=== PATIENT | female | born 1965 | race Caucasian/White ===

== ENCOUNTER 2016-12-07 22:16 | Emergency (ER) | payer OTHER ==
[2016-12-07 22:28] VITALS: BMI 31.7
[2016-12-07] MEDS ORDERED: ASPIRIN 81 MG CHEWABLE TABLETS PO ONE (23:32)
[2016-12-07] MEDS ORDERED: ASPIRIN 81 MG CHEWABLE TABLETS ONE (23:51)
--- NOTE | 2016-12-08 00:22 | PDOC ---
History of Present Illness <Elayne Wong - Last Filed: 12/08/16 00:25> <Kylie Alexander - Last Filed: 12/08/16 22:59> - General Chief Complaint: Chest Pain Stated Complaint: HIGH SUGAR/CHEST PAIN Time Seen by Provider: 12/07/16 23:17 - History of Present Illness Initial Comments: 12/08/16 00:25 The patient is a 50 year old female, with a significant past medical history of diabetes (januvia 550mg), hypertension, who presents to the emergency department with intermittent chest pain and palpitations for 4 days. The patient describes the pain as a stabbing pain, 6/10 in severity, with associated left arm weakness. She reports having an echocardiogram and stress test about 2 years ago with some positive finding, but denies ever following up. She denies shortness of breath, headache and dizziness. She denies fever, chills , nausea, vomit, diarrhea and constipation. She denies dysuria, frequency, urgency and hematuria. Allergies: tylenol codeine (rashes, swelling) Past surgical history: colectomy (2004), lap band (2005) Social history: denies toxic habits PCP - Dr. Petty (Elayne Wong) Past History <Elayne Wong - Last Filed: 12/08/16 00:25> - Past Medical History Diabetes: Yes HTN: Yes Other medical history: migraine, diverticulits - Psycho/Social/Smoking Cessation Hx Suicidal Ideation: No Smoking History: Never smoked <Kylie Alexander - Last Filed: 12/08/16 22:59> - Past Medical History Allergies/Adverse Reactions: Allergies Allergy/AdvReac Type Severity Reaction Status Date / Time acetaminophen Allergy Verified 12/07/16 22:24 [From Tylenol-Codeine] codeine phosphate Allergy Verified 12/07/16 22:24 [From Tylenol-Codeine] Home Medications: Ambulatory Orders Amlodipine Besylate 5 mg PO DAILY 12/08/16 Chlorthalidone 25 mg PO DAILY 12/08/16 Losartan Potassium 25 mg PO DAILY 12/08/16 Review of Systems - Review of Systems Able to Perform ROS?: Yes <Elayne Wong - Last Filed: 12/08/16 00:25> <Kylie Alexander - Last Filed: 12/08/16 22:59> - Review of Systems Comments:: 12/08/16 00:25 CONSTITUTIONAL: (+) fever, Absent: chills, diaphoresis, generalized weakness, malaise, loss of appetite HEENT: Absent: rhinorrhea, nasal congestion, throat pain, throat swelling, difficulty swallowing, mouth swelling, ear pain, eye pain, visual Changes CARDIOVASCULAR: (+) chest pain, palpitations, Absent: syncope, irregular heart rate, lightheadedness, peripheral edema RESPIRATORY: Absent: cough, shortness of breath, dyspnea with exertion, orthopnea, wheezing, stridor, hemoptysis GASTROINTESTINAL: Absent: abdominal pain, abdominal distension, nausea, vomiting, diarrhea, constipation, melena, hematochezia GENITOURINARY: Absent: dysuria, frequency, urgency, hesitancy, hematuria, flank pain, genital pain MUSCULOSKELETAL: Absent: myalgia, arthralgia, joint swelling SKIN: Absent: rash, itching, pallor HEMATOLOGIC/IMMUNOLOGIC: Absent: easy bleeding, easy bruising, lymphadenopathy, frequent infections ENDOCRINE: Absent: unexplained weight gain, unexplained weight loss, heat intolerance, cold intolerance NEUROLOGIC: Absent: headache, focal weakness or paresthesias, dizziness, unsteady gait, seizure, mental status changes, bladder or bowel incontinence PSYCHIATRIC: Absent: anxiety, depression, suicidal or homicidal ideation, hallucinations. ( Elayne Wong) *Physical Exam <Elayne Wong - Last Filed: 12/08/16 00:25> <Kylie Alexander - Last Filed: 12/08/16 22:59> - Vital Signs Last Vital Signs Temp Pulse Resp BP Pulse Ox 98.8 F 120 H 20 104/75 100 12/07/16 22:25 12/07/16 22:25 12/07/16 22:25 12/07/16 22:25 12/07/16 22:25 - Physical Exam Comments: 12/08/16 00:27 GENERAL: Well developed, well nourished. Awake and alert. No acute distress. HEENT: Normocephalic, atraumatic. PERRLA, EOMI. No conjunctival pallor. Sclera are non- icteric. Moist mucous membranes. Oropharynx is clear. NECK: Supple. Full ROM. No JVD. Carotid pulses 2+ and symmetric, without bruits. No thyromegaly. No lymphadenopathy. CARDIOVASCULAR: (+) tachycardic rate and normal rhythm. No murmurs, rubs, or gallops. Distal pulses are 2+ and symmetric. PULMONARY: No evidence of respiratory distress. Lungs clear to auscultation bilaterally. No wheezing, rales or rhonchi. ABDOMINAL: Soft. Non-tender. Non-distended. No rebound or guarding. No organomegaly. Normoactive bowel sounds. MUSCULOSKELETAL Normal range of motion at all joints. No bony deformities or tenderness. No CVA tenderness. EXTREMITIES: No cyanosis. No clubbing. No edema. No calf tenderness. SKIN: Warm and dry. Normal capillary refill. No rashes. No jaundice. NEUROLOGICAL: Alert, awake, appropriate. Cranial nerves 2-12 intact. Normoreflexic in the upper and lower extremities. Normal speech. Toes are down-going bilaterally. Gait is normal without ataxia. PSYCHIATRIC: Cooperative. Good eye contact. Appropriate mood and affect. (Elayne Wong) ED Treatment Course - LABORATORY CBC & Chemistry Diagram: 12/08/16 00:28 12/08/16 00:28 <Kylie Alexander - Last Filed: 12/08/16 22:59> - ADDITIONAL ORDERS Additional order review: 12/08/16 12/08/16 05:09 00:28 RBC 5.02 MCV 81.5 MCHC 34.4 RDW 13.7 MPV 9.0 Neutrophils % 65.6 Lymphocytes % 25.0 Monocytes % 7.1 Eosinophils % 1.6 Basophils % 0.7 POC Glucometer [id number] - RADIOLOGY Radiology Studies Ordered: Category Date Time Status CHEST PA & LAT [RAD] Stat Radiology 12/08/16 02:52 Completed CHEST X-RAY PORTABLE* [RAD] Stat Radiology 12/08/16 01:31 Completed - Medications Given in the ED: ED Medications Discontinued Medications Generic Name Dose Route Start Last Admin Trade Name Freq PRN Reason Stop Dose Admin Aspirin 162 mg 12/07/16 23:32 12/07/16 23:47 Asa - PO 12/07/16 23:33 162 mg ONCE ONE Administration Sodium Chloride 1,000 mls @ 1,000 mls/hr 12/08/16 01:38 12/08/16 02:05 Normal Saline - IV 12/08/16 02:37 1,000 mls/hr ASDIR STA Administration Medical Decision Making <Elayne oWng - Last Filed: 12/08/16 00:25> <Kylie Alexander - Last Filed: 12/08/16 22:59> - Medical Decision Making 12/08/16 02:06 50 yo female has had 4 days of chest pain and then dev left arm pain. shenoted that her glucose was elevated at home. She denies any nausea,vomiting -pt is NIDDM and takes januvia. ekg does not show any evidence of ischemia -first cardiac enzyme is negative -[id number] (Kylie Alexander) *DC/Admit/Observation/Transfer <Elayne Wong - Last Filed: 12/08/16 00:25> <Kylie Alexander - Last Filed: 12/08/16 22:59> Diagnosis at time of Disposition: Chest pain - Referrals Referrals: Prem Petty [Primary Care Provider] - Moody Oates MD [Staff Physician] - - Patient Instructions Printed Discharge Instructions: DI for Chest Pain - Post Discharge Activity Work/School Note: Back to Work - Attestations Scribe Attestion: 12/08/16 00:27 Documentation prepared by Elayne Wong, acting as medical billing specialist for Kylie Alexander MD (Elayne Wong)
[2016-12-08 00:58] LABS: BASOPHIL 0.7 % (0-2.0); EOSINOPHIL 1.6 % (0-4.5); MCHC 34.4 g/dl (32.0-36.0); MEAN CELL VOLUME 81.5 fl (80-96); NEUTROPHILS 65.6 % (42.8-82.8); PLATELET COUNT 343 K/MM3 (134-434); RDW 13.7 % (11.6-15.6); WHITE BLOOD COUNT 8.2 K/mm3 (4.0-10.0)
[2016-12-08 01:16] LABS: INR 1.15 (0.82-1.09); PROTHROMBIN TIME (PATIENT) 12.7 SEC (9.98-11.88)
[2016-12-08 01:27] LABS: ALBUMIN 3.5 g/dl (3.4-5.0); ANION GAP 11 (8-16); BILIRUBIN,TOTAL 0.3 mg/dL (0.2-1.0); CALCIUM 8.9 mg/dL (8.5-10.1); CO2 31 mmol/L (21-32); CREATININE 0.9 mg/dL (0.55-1.02); MAGNESIUM 1.7 mg/dL (1.8-2.4); SGOT/AST 13 U/L (15-37); SGPT/ALT 21 U/L (12-78); TOT PROT 7.5 g/dl (6.4-8.2)
[2016-12-08 01:30] LABS: ALK PHOS 206 U/L (45-117); TROPONIN I < 0.02 ng/ml (0.00-0.05)
[2016-12-08 01:34] LABS: GLUCOSE,RANDOM 385 mg/dL (74-106)
[2016-12-08] MEDS ORDERED: SODIUM CHLORIDE 1,000 ML IV STA (01:38)
[2016-12-08 04:29] LABS: TROPONIN I < 0.02 ng/ml (0.00-0.05)
--- NOTE | 2016-12-08 04:39 | PDOC ---
*Physical Exam - Vital Signs Last Vital Signs Temp Pulse Resp BP Pulse Ox 98.8 F 120 H 20 104/75 100 12/07/16 22:25 12/07/16 22:25 12/07/16 22:25 12/07/16 22:25 12/07/16 22:25 ED Treatment Course - LABORATORY CBC & Chemistry Diagram: 12/08/16 00:28 12/08/16 00:28 - ADDITIONAL ORDERS Additional order review: Laboratory Results 12/08/16 12/08/16 12/08/16 04:00 00:28 00:28 INR Sodium 133 L Potassium 3.6 Chloride 91 L Carbon Dioxide 31 Anion Gap 11 BUN 12 Creatinine 0.9 Creat Clearance w eGFR > 60 Random Glucose 385 H* Calcium 8.9 Magnesium 1.7 L Total Bilirubin 0.3 AST 13 L ALT 21 Alkaline Phosphatase 206 H Creatine Kinase 65 67 Troponin I < 0.02 < 0.02 Total Protein 7.5 Albumin 3.5 Serum , Qual Negative 12/08/16 00:28 INR 1.15 H Sodium Potassium Chloride Carbon Dioxide Anion Gap BUN Creatinine Creat Clearance w eGFR Random Glucose Calcium Magnesium Total Bilirubin AST ALT Alkaline Phosphatase Creatine Kinase Troponin I Total Protein Albumin Serum , Qual 12/08/16 00:28 RBC 5.02 MCV 81.5 MCHC 34.4 RDW 13.7 MPV 9.0 Neutrophils % 65.6 Lymphocytes % 25.0 Monocytes % 7.1 Eosinophils % 1.6 Basophils % 0.7 - Medications Given in the ED: ED Medications Discontinued Medications Generic Name Dose Route Start Last Admin Trade Name Freq PRN Reason Stop Dose Admin Aspirin 162 mg 12/07/16 23:32 12/07/16 23:47 Asa - PO 12/07/16 23:33 162 mg ONCE ONE Administration Sodium Chloride 1,000 mls @ 1,000 mls/hr 12/08/16 01:38 12/08/16 02:05 Normal Saline - IV 12/08/16 02:37 1,000 mls/hr ASDIR STA Administration *DC/Admit/Observation/Transfer Diagnosis at time of Disposition: Chest pain Qualifiers: Chest pain type: unspecified Qualified Code(s): R07.9 - Chest pain, unspecified - Discharge Dispostion Admit: No - Referrals Referrals: Prem Petty [Primary Care Provider] - Moody Oates MD [Staff Physician] - - Patient Instructions Printed Discharge Instructions: DI for Chest Pain - Post Discharge Activity Work/School Note: Back to Work
--- NOTE | 2016-12-08 11:55 | EKG ---
Test Reason : Blood Pressure : / mmHG Vent. Rate : 112 BPM Atrial Rate : 112 BPM P-R Int : 162 ms QRS Dur : 092 ms QT Int : 350 ms P-R-T Axes : 031 -37 008 degrees QTc Int : 477 ms SINUS TACHYCARDIA POSSIBLE LEFT ATRIAL ENLARGEMENT LEFT AXIS DEVIATION ABNORMAL ECG NO PREVIOUS ECGS AVAILABLE Confirmed by RYAN JOHNS, CONNIE ([id number]) on 12/08/2016 11:54:59 AM Referred By: Confirmed By:CONNIE DAVIS MD
[2016-12-11 04:27] VITALS: PULSE 82
[2016-12-11 04:43] VITALS: BP 118/63; TEMP 97.9
== END 2016-12-08 04:40 | disposition home or self-care (01) ==
LOC: JER 22:16
PROC: 3E0337Z Introduction of Electrolytic and Water Balance Substance into Peripheral Vein, Percutaneous Approach (ICD-10-PCS; principal; 2016-12-07)
DX: R07.89 Other chest pain (principal); Z79.84 Long term (current) use of oral hypoglycemic drugs
CPT/HCPCS: 36415; 71010-TC; 71020-TC; 80053; 82550; 83735; 84484; 84703; 85025; 85610; 93005; 93010; 99282-25; 99284-25

== ENCOUNTER 2018-12-08 15:30 | Inpatient (IN) | payer OTHER ==
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
[2018-12-08 16:19] VITALS: BMI 30.9
[2018-12-08] MEDS ORDERED: SODIUM CHLORIDE 2,449 ML IV ONE (16:42)
[2018-12-08] MEDS ORDERED: ACETAMINOPHEN 1000 MG/100 ML VIAL (NON FORMULARY) IVPB ONE (16:44)
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
[2018-12-08] MEDS ORDERED: ACETAMINOPHEN INJECTION 100 ML IVPB ONE (17:19)
[2018-12-08 17:31] LABS: INR 1.27 (0.83-1.09)
[2018-12-08 17:34] LABS: ACTIVATED PTT 27.8 SECONDS (25.2-36.5)
[2018-12-08 17:46] LABS: ALBUMIN 3.3 g/dl (3.4-5.0); ALK PHOS 113 U/L (45-117); ANION GAP 7 MMOL/L (8-16); BILIRUBIN,TOTAL 0.3 mg/dL (0.2-1); BLOOD UREA NITROGEN 13 mg/dL (7-18); CALCIUM 8.2 mg/dL (8.5-10.1); CHLORIDE 100 mmol/L (98-107); CO2 25 mmol/L (21-32); CREATININE 0.8 mg/dL (0.55-1.3); GLUCOSE,RANDOM 150 mg/dL (74-106); POTASSIUM 3.6 mmol/L (3.5-5.1); SGOT/AST 29 U/L (15-37); SGPT/ALT 28 U/L (13-61); SODIUM 132 mmol/L (136-145); TOT PROT 7.7 g/dl (6.4-8.2)
[2018-12-08 17:52] LABS: BASO % 0.2 % (0-2.0); EOS % 0.4 % (0-4.5); HEMATOCRIT 41.9 % (32.4-45.2); HEMOGLOBIN 14.7 GM/dL (10.7-15.3); LYMPH % 10.2 % (8-40); MCH 29.1 pg (25.7-33.7); MEAN CELL VOLUME 83.1 fl (80-96); MEAN PLT VOLUME 8.7 fl (7.5-11.1); MONO % 6.9 % (3.8-10.2); NEUT % 82.3 % (42.8-82.8); PLATELET COUNT 302 K/MM3 (134-434); RBC 5.04 M/mm3 (3.60-5.2); RDW 13.7 % (11.6-15.6)
[2018-12-08 18:21] LABS: EPI CELLS 12.4 /HPF (0-5); HYALINE CASTS 84 /hpf (0-8); PH,URINE 5.5 (5.0-8.0); URINE APPEARANCE CLOUDY; URINE BACTERIA 169.362 /hpf (NEGATIVE); URINE BILIRUBIN 1+ (<2.0 mg/dL); URINE COLOR DK YELLOW; URINE GLUCOSE (UA) NEGATIVE (NEGATIVE); URINE KETONE TRACE (NEGATIVE); URINE LEUK ESTERASE TRACE (NEGATIVE); URINE NITRITE NEGATIVE (NEGATIVE); URINE PROTEIN 2+ (NEGATIVE); URINE RBC 1 /hpf (0-4); URINE WBC 7 /hpf (0-5)
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
[2018-12-08 21:30] LABS: VENOUS PC02 42.6 mmHg (41-51); VENOUS PH 7.41 (7.31-7.41); VENOUS PO2 39.6 mmHg (30-40)
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
[2018-12-08] MEDS ORDERED: ONDANSETRON 4 MG/2 ML VIAL IVPUSH PRN (23:40)
[2018-12-08] MEDS ORDERED: SODIUM CHLORIDE 1,000 ML IV SCH (23:45)
[2018-12-08] MEDS ORDERED: ALBUTEROL SO4 2.5/IPRATROPIUM 0.5 INH SOL 3 ML VIAL.NEB. NEB PRN (23:55)
[2018-12-08] MEDS ORDERED: ALBUTEROL SO4 0.083% IH SOL 2.5 MG/3 ML VIAL.NEB. NEB PRN (23:56)
[2018-12-09] MEDS: metroNIDAZOLE 250 MG TABLET PO SCH ×2 (02:21→06:57)
[2018-12-09] MEDS ORDERED: MECLIZINE HCL 25 MG TABLET (FP) PO PRN (06:00)
[2018-12-09] MEDS ORDERED: methylPREDNISolone NA SUCC 1000 MG/8 ML VIAL IVPB ONE (06:04)
[2018-12-09] MEDS: guaiFENesin 600 MG TABLET.ER (FP) PO SCH ×4 (06:14→21:58)
[2018-12-09] MEDS ORDERED: methylPREDNISolone NA SUCC 40 MG/1 ML VIAL IVPB ONE (06:19)
[2018-12-09] MEDS: INSULIN SLIDING SCALE (NOVOLOG) 1 VIAL SQ SCH ×6 (06:34→22:06)
[2018-12-09] MEDS ORDERED: metroNIDAZOLE 250 MG TABLET ONE (06:36)
[2018-12-09] MEDS ORDERED: methylPREDNISolone NA SUCC 125 MG/2 ML VIAL ONE (06:37)
[2018-12-09] MEDS ORDERED: HEPARIN NA (PORCINE) 5,000 UNITS/ML 1ML VIAL ONE (06:37)
[2018-12-09 06:42] LABS: BASO % 0.4 % (0-2.0); EOS % 1.9 % (0-4.5); HEMATOCRIT 37.8 % (32.4-45.2); HEMOGLOBIN 13.2 GM/dL (10.7-15.3); LYMPH % 25.2 % (8-40); MCH 28.8 pg (25.7-33.7); MCHC 34.9 g/dl (32.0-36.0); MEAN CELL VOLUME 82.5 fl (80-96); MEAN PLT VOLUME 8.6 fl (7.5-11.1); MONO % 13.6 % (3.8-10.2); NEUT % 58.9 % (42.8-82.8); PLATELET COUNT 249 K/MM3 (134-434); RBC 4.58 M/mm3 (3.60-5.2); RDW 13.8 % (11.6-15.6); WHITE BLOOD COUNT 3.7 K/mm3 (4.0-10.0)
[2018-12-09 06:57] LABS: INR 1.19 (0.83-1.09); PROTHROMBIN TIME (PATIENT) 14.1 SEC (9.7-13.0)
[2018-12-09] MEDS: HEPARIN NA (PORCINE) 5,000 UNITS/ML 1ML VIAL SQ SCH ×3 (06:57→21:58)
[2018-12-09 07:00] LABS: ACTIVATED PTT 28.9 SECONDS (25.2-36.5)
[2018-12-09 07:24] LABS: ALBUMIN 2.9 g/dl (3.4-5.0); ALK PHOS 99 U/L (45-117); AMYLASE 29 U/L (25-115); ANION GAP 5 MMOL/L (8-16); BILIRUBIN,TOTAL 0.3 mg/dL (0.2-1); BLOOD UREA NITROGEN 9 mg/dL (7-18); CALCIUM 7.7 mg/dL (8.5-10.1); CHLORIDE 102 mmol/L (98-107); CO2 27 mmol/L (21-32); CREATININE 0.6 mg/dL (0.55-1.3); GLUCOSE,RANDOM 137 mg/dL (74-106); LIPASE 137 U/L (73-393); MAGNESIUM 1.9 mg/dL (1.8-2.4); PHOSPHOROUS 2.9 mg/dL (2.5-4.9); POTASSIUM 3.8 mmol/L (3.5-5.1); SGOT/AST 32 U/L (15-37); SGPT/ALT 32 U/L (13-61); SODIUM 134 mmol/L (136-145); TOT PROT 6.7 g/dl (6.4-8.2)
[2018-12-09] MEDS ORDERED: PT OWN MED DRAWER 7, Y5N ONE ×2 (08:06→21:49)
[2018-12-09] MEDS: amLODIPine BESYLATE 5 MG TABLET (FP) PO SCH (09:37)
[2018-12-09] MEDS: FLUTICASONE PROP 0.05% 16 GM NASAL SPRAY NS SCH ×2 (09:37→23:15)
[2018-12-09] MEDS: FAMOTIDINE 20 MG/50 ML IVPB 20 MG/50 ML MG IVPB SCH ×2 (09:39→22:07)
[2018-12-09] MEDS: CEFTRIAXONE 1 GM in DEXTROSE 5%-WATER - 50 ML IVPB SCH (09:39)
[2018-12-09] MEDS ORDERED: FAMOTIDINE 20 MG/50 ML IVPB 20 MG/50 ML MG IVPB ONE (09:40)
[2018-12-09] MEDS ORDERED: CEFTRIAXONE 1 GM/50 ML BAG ONE (09:40)
[2018-12-09] MEDS ORDERED: LOSARTAN POTASSIUM 25 MG TABLET PO SCH (10:00)
[2018-12-09] MEDS ORDERED: BENZOCAINE/MENTH/CETYLPYRD CL 1 EACH LOZENGE MM PRN (10:25)
[2018-12-09] MEDS: SODIUM CHLORIDE 1,000 ML IV SCH (10:31)
[2018-12-09 10:37] LABS: EPI CELLS 15.6 /HPF (0-5); HYALINE CASTS 64 /hpf (0-8); URINE APPEARANCE CLOUDY; URINE BACTERIA 944.1 /hpf (NEGATIVE); URINE BILIRUBIN NEGATIVE (<2.0 mg/dL); URINE COLOR DK YELLOW; URINE GLUCOSE (UA) NEGATIVE (NEGATIVE); URINE KETONE 1+ (NEGATIVE); URINE LEUK ESTERASE 2+ (NEGATIVE); URINE NITRITE NEGATIVE (NEGATIVE); URINE PROTEIN 1+ (NEGATIVE); URINE RBC 2 /hpf (0-4); URINE WBC 78 /hpf (0-5)
[2018-12-09] MEDS: IBUPROFEN 400 MG TABLET (FP) PO PRN (11:03)
[2018-12-09] MEDS ORDERED: IBUPROFEN 400 MG TABLET (FP) PO ONE (11:03)
[2018-12-09] MEDS ORDERED: ALBUTEROL SO4 2.5/IPRATROPIUM 0.5 INH SOL 3 ML VIAL.NEB. NEB ONE (11:03)
[2018-12-09] MEDS ORDERED: ONDANSETRON 4 MG/2 ML VIAL ONE (11:04)
--- NOTE | 2018-12-09 11:05 | EKG ---
Test Reason : Blood Pressure : / mmHG Vent. Rate : 121 BPM Atrial Rate : 121 BPM P-R Int : 152 ms QRS Dur : 082 ms QT Int : 314 ms P-R-T Axes : 033 -42 013 degrees QTc Int : 445 ms SINUS TACHYCARDIA POSSIBLE LEFT ATRIAL ENLARGEMENT LEFT AXIS DEVIATION ABNORMAL ECG WHEN COMPARED WITH ECG OF 07-DEC-2016 22:35, NO SIGNIFICANT CHANGE WAS FOUND Confirmed by WOJCIECH FABIAN MD ([id number]) on 12/09/2018 11:04:58 AM Referred By: Confirmed By:WOJCIECH FABIAN MD
[2018-12-09] MEDS ORDERED: SUMAtriptan SUCCINATE 50 MG TABLET PO PRN ×2 (11:15→22:00)
[2018-12-09] MEDS ORDERED: SUMATRIPTAN SUCCINATE 6 MG/0.5 ML VIAL SQ ONE ×2 (11:15→12:20)
[2018-12-09] MEDS ORDERED: SUMATRIPTAN SUCCINATE 6 MG/0.5 ML VIAL ONE (11:20)
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
[2018-12-09] MEDS ORDERED: INSULIN (NOVOLOG) ASPART 100 UNITS/ML 10ML VIAL ONE (12:50)
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
--- NOTE | 2018-12-09 14:29 | ECHO ---
Name: FIFI CARMONA Exam:Adult Echocardiogram Study Date: 12/09/2018 09:17 AM Age: 52 yrs Reason For Study: SYNCOPE Height: 64 in Weight: 180 lb BSA: 1.9 m2 MMode/2D Measurements & Calculations IVSd: 0.85 cm Ao root diam: 2.6 cm LVIDd: 4.4 cm LVIDs: 2.9 cm LVPWd: 0.77 cm EDV(Teich): 87.6 ml LVOT diam: 2.0 cm ESV(Teich): 32.4 ml Doppler Measurements & Calculations MV E max tye: 47.3 cm/sec Ao V2 max: 271.5 cm/sec MV A max tye: 102.8 cm/sec Ao max P.7 mmHg MV E/A: 0.46 Ao V2 mean: 171.0 cm/sec MV dec time: 0.09 sec Ao mean P.9 mmHg Ao V2 VTI: 46.1 cm BRANDAN(I,D): 2.8 cm2 BRANDAN(V,D): 2.6 cm2 LV V1 max P.0 mmHg SV(LVOT): 127.8 ml LV V1 mean P.7 mmHg LV V1 max: 223.9 cm/sec LV V1 mean: 118.1 cm/sec LV V1 VTI: 40.3 cm Med Peak E' Tye: 3.1 cm/sec Med E/e': 15.2 Lat Peak E' Tye: 8.4 cm/sec Lat E/e': 5.6 Procedure The study was technically difficult with many images being suboptimal in quality. Left Ventricle There is moderate asymmetric left ventricular hypertrophy. There is systolic anterior motion of the m itral valve. There is a late peaking systolic gradient (maximum 50-60mmHg) which localizes to the left vent ricular outflow tract on PW doppler imaging. Findings are suggestive of hypertrophic obstructive cardiomyopat hy. Recommend correlation with cardiac MRI as outpatient to confirm. The transmitral spectral Doppler florecita w pattern is suggestive of impaired LV relaxation. Mitral Valve There is mild mitral regurgitation. Tricuspid Valve The tricuspid valve is not well visualized, but is grossly normal. There is mild tricuspid regurgitat ion. Great Vessels The aortic root is normal size. Pericardium/Pleura There is no pericardial effusion. Interpretation Summary The study was technically difficult with many images being suboptimal in quality. There is moderate asymmetric left ventricular hypertrophy. There is systolic anterior motion of the mitral valve. There is mild mitral regurgitation. There is a late peaking systolic gradient (maximum 50-60mmHg) which localizes to the left ventricular outflow tract on PW doppler imaging. Findings are suggestive of hypertrophic obstructive cardiomyopathy. Kristofer mmend correlation with cardiac MRI as outpatient to confirm. There is mild tricuspid regurgitation. There is no pericardial effusion. MD Cordero *Sil 12/09/2018 02:28 PM
[2018-12-09] MEDS ORDERED: PRAMIPEXOLE DIHYDROCHLORIDE 0.125 MG TABLET PO SCH (22:00)
[2018-12-09] MEDS: TOPIRAMATE 25 MG TABLET (FP) PO SCH (23:18)
[2018-12-10] MEDS: HEPARIN NA (PORCINE) 5,000 UNITS/ML 1ML VIAL SQ SCH ×2 (05:54→15:38)
[2018-12-10] MEDS: INSULIN SLIDING SCALE (NOVOLOG) 1 VIAL SQ SCH ×2 (06:13→12:11)
[2018-12-10 06:50] LABS: HEMATOCRIT 37.9 % (32.4-45.2); HEMOGLOBIN 13.3 GM/dL (10.7-15.3); MCH 29.1 pg (25.7-33.7); MCHC 35.1 g/dl (32.0-36.0); MEAN CELL VOLUME 82.7 fl (80-96); MEAN PLT VOLUME 8.3 fl (7.5-11.1); PLATELET COUNT 265 K/MM3 (134-434); RBC 4.59 M/mm3 (3.60-5.2); RDW 14.1 % (11.6-15.6); WHITE BLOOD COUNT 3.5 K/mm3 (4.0-10.0)
[2018-12-10 07:19] LABS: ANION GAP 6 MMOL/L (8-16); BLOOD UREA NITROGEN 9 mg/dL (7-18); CALCIUM 7.8 mg/dL (8.5-10.1); CHLORIDE 104 mmol/L (98-107); CO2 28 mmol/L (21-32); CREATININE 0.6 mg/dL (0.55-1.3); GLUCOSE,RANDOM 91 mg/dL (74-106); MAGNESIUM 1.9 mg/dL (1.8-2.4); PHOSPHOROUS 2.9 mg/dL (2.5-4.9); POTASSIUM 3.6 mmol/L (3.5-5.1); SODIUM 138 mmol/L (136-145)
[2018-12-10] MEDS ORDERED: cefTRIAXone SODIUM 1 GM VIAL ONE (09:05)
[2018-12-10] MEDS ORDERED: DEXTROSE 5%-WATER - 50 ML IVPB ONE (09:05)
[2018-12-10] MEDS ORDERED: PT OWN MED DRAWER 7, Y5N ONE (09:05)
--- NOTE | 2018-12-10 09:16 | PN ---
Progress Note (short form) - Note Progress Note: Chief Complaint: Events noted, notes reviewed, recurrent syncopal episode, hypertrophic obstructive cardiomyopathy on echocardiography History of Present Illness: Seen and examined on telemetry. Full consult dictated Medications: Current Medications Albuterol Sulfate (Ventolin 0.083% Nebulizer Soln -) 1 amp NEB Q6H PRN PRN Reason: SHORT OF BREATH/WHEEZING Albuterol/Ipratropium (Duoneb -) 1 amp NEB Q4H PRN PRN Reason: SHORTNESS OF BREATH Last Admin: 12/09/18 11:04 Dose: 1 amp Amlodipine Besylate (Norvasc -) 5 mg PO DAILY [facility] Last Admin: 12/10/18 09:54 Dose: 5 mg Benzocaine/Menthol (Cepacol Lozenge -) 1 each MM PRN PRN PRN Reason: SORE THROAT Fluticasone Propionate (Flonase -) 1 spray NS BID [facility] Last Admin: 12/10/18 09:54 Dose: Not Given Guaifenesin (Mucinex -) 600 mg PO BID [facility] Last Admin: 12/10/18 09:54 Dose: 600 mg Heparin Sodium (Porcine) (Heparin -) 5,000 unit SQ TID [facility] Last Admin: 12/10/18 05:54 Dose: 5,000 unit Ceftriaxone Sodium 1 gm/ (Dextrose) 50 mls @ 100 mls/hr IVPB DAILY [facility]; Protocol Last Admin: 12/10/18 09:54 Dose: 100 mls/hr Famotidine/Sodium Chloride (Pepcid 20 Mg Premixed Ivpb -) 20 mg in 50 mls @ 100 mls/hr IVPB BID [facility] Last Admin: 12/10/18 09:54 Dose: 100 mls/hr Sodium Chloride (Normal Saline -) 1,000 mls @ 100 mls/hr IV ASDIR [facility] Last Admin: 12/09/18 10:31 Dose: 100 mls/hr Ibuprofen (Motrin -) 400 mg PO Q6H PRN PRN Reason: FEVER Insulin Aspart (Novolog Vial Sliding Scale -) 1 vial SQ ACHS [facility]; Protocol Last Admin: 12/10/18 06:13 Dose: Not Given Meclizine HCl (Antivert -) 25 mg PO TID PRN PRN Reason: VERTIGO Last Admin: 12/09/18 22:01 Dose: 25 mg Ondansetron HCl (Zofran Injection) 4 mg IVPUSH Q6H PRN PRN Reason: NAUSEA Last Admin: 12/09/18 11:03 Dose: 4 mg Pramipexole Dihydrochloride (Mirapex -) 0.125 mg PO HS [facility] Last Admin: 12/09/18 23:16 Dose: 0.125 mg Sumatriptan Succinate (Imitrex -) 100 mg PO Q12H PRN PRN Reason: HEADACHE Topiramate (Topamax -) 25 mg PO BID [facility] Last Admin: 12/10/18 09:54 Dose: Not Given Review of Systems Cardiovascular: As noted above Respiratory: denies: Cough or Sputum Production Gastrointestinal: denies: Nausea, Vomiting, Diarrhea, Constipation or Abdominal Pain Musculoskeletal: No Symptoms Reported Endocrine: No Symptoms Reported Vital Signs: Last Vital Signs Temp Pulse Resp BP Pulse Ox 98.2 F 78 16 124/78 97 12/10/18 05:53 12/10/18 05:53 12/10/18 05:53 12/10/18 05:53 12/10/18 01:00 Intake & Output 12/07/18 12/08/18 12/09/18 12/10/18 23:59 23:59 23:59 23:59 Intake Total 250 Balance 250 Weight 180 lb 180 lb Neck: Supple Negative JVD no bruit appreciated Respiratory: Clear to A&P Bilaterally Cardiovascular: S1 S2 Regular Rate and Rhythm Grade 2/6 WILMER Gastrointestinal: Soft Benign Normal Bowel Sounds Ext: Negative Edema Labs: Troponin, BNP 12/09/18 06:15 Troponin I < 0.02 CBC, BMP 12/10/18 06:00 12/10/18 06:00 Hepatic Panel Total Bilirubin 0.3 mg/dL (0.2-1) 12/09/18 06:15 AST 32 U/L (15-37) 12/09/18 06:15 ALT 32 U/L (13-61) 12/09/18 06:15 Alkaline Phosphatase 99 U/L (45-117) 12/09/18 06:15 Albumin 2.9 g/dl (3.4-5.0) L 12/09/18 06:15 INR, PTT INR 1.19 (0.83-1.09) H 12/09/18 06:15 Assessment/Plan ASSESSMENT: 1. Recurrent syncopal episode suggestive of HOCM exacerbated by probable dehydration, neuro-cardiogenic syncope unlikely, sustained arrhythmia unlikely 2. Hypertrophic obstructive cardiomyopathy, evident on echocardiography 3. Heart murmur related to above 4. HTN 5. DM 6. Hypercholesterolemia 7. Diarrhea 8. History of diverticulitis post partial colectomy PLAN: 1. Add B-Blockers 2. Resume ACEI or ARBS 3. D/C Norvasc 4. Avoid diuretics 5. Additional evaluation as outpatient including MPI study, cardiac MRI +/- EP study/possible ICD implant Above was discussed in detail with the patient Jose Marks M.D.
[2018-12-10] MEDS: TOPIRAMATE 25 MG TABLET (FP) PO SCH (09:54)
[2018-12-10] MEDS: FLUTICASONE PROP 0.05% 16 GM NASAL SPRAY NS SCH (09:54)
[2018-12-10] MEDS: FAMOTIDINE 20 MG/50 ML IVPB 20 MG/50 ML MG IVPB SCH (09:54)
[2018-12-10] MEDS: guaiFENesin 600 MG TABLET.ER (FP) PO SCH (09:54)
[2018-12-10] MEDS: amLODIPine BESYLATE 5 MG TABLET (FP) PO SCH (09:54)
[2018-12-10] MEDS: CEFTRIAXONE 1 GM in DEXTROSE 5%-WATER - 50 ML IVPB SCH (09:54)
[2018-12-10 11:46] VITALS: BP 118/76
[2018-12-10] MEDS: SODIUM CHLORIDE 1,000 ML IV SCH (12:11)
[2018-12-10] MEDS ORDERED: metoPROLOL SUCCINATE 25 MG TAB.SR.24H (FP) PO SCH (12:45)
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
--- NOTE | 2018-12-10 13:11 | PN ---
Teaching Attending Note Name of Resident: Evangelist Bliss ATTENDING PHYSICIAN STATEMENT I saw and evaluated the patient. I reviewed the resident's note and discussed the case with the resident. I agree with the resident's findings and plan as documented. SUBJECTIVE: No SOB, no light headedness, no TA , no COB, no palpitations. dyuria improved no diarrhea OBJECTIVE: NAD. CV: RRR, 3/6 Sm at base, LLSB, and apexno radiation to carotid but radiates to L axilla. No JVD Lungs: CTAB Abd: soft, ND, minimal TTp in suprapubic area. no rebound tenderness or guarding . No CVA tenderness Ext: no edema or erythema. ASSESSMENT AND PLAN: 52 y/o lady with h/o Migraines, DM, syncope , HTN, asthma, ? TIA/stroke who presented with syncope . she was found to have UTI 1- Syncope: due to orthostatic hypotension . hypovolemia form diarrhea in setting of HOCM could have contributed to increased outflow obstruction. tele with no arrhythmias. repeat VS showed no orthostatic drop. and patient feels much better - can stop IVF 2- New diagnosis of HOCM: case d/w Dr. Marks - md chlorthalidone and norvasc at md - add BB and increase home losartan 3- Complicated UTI: urine cx did not grow but patient sx are very suggestive of UTI . will finish 7 day course of abx with keflex ( today day 2 of ceftriaxone ) 4- N/V/D : resolved . was probably viral gastroenteritis or due to UTI 5- HTN : as above 6- DM cont amaryl at md 7- Migraines: no more TA. Dc home later today if she tolerates newly added BB
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
[2018-12-10 15:42] VITALS: PULSE 78; TEMP 98.3
--- NOTE | 2018-12-10 17:12 | EKG ---
Test Reason : Blood Pressure : / mmHG Vent. Rate : 097 BPM Atrial Rate : 097 BPM P-R Int : 152 ms QRS Dur : 088 ms QT Int : 378 ms P-R-T Axes : 042 -34 003 degrees QTc Int : 480 ms POOR DATA QUALITY, INTERPRETATION MAY BE ADVERSELY AFFECTED NORMAL SINUS RHYTHM LEFT AXIS DEVIATION PROLONGED QT ABNORMAL ECG WHEN COMPARED WITH ECG OF 08-DEC-2018 15:52, T WAVE AMPLITUDE HAS DECREASED IN LATERAL LEADS Confirmed by LOBO REYES MD ([id number]) on 12/10/2018 5:12:31 PM Referred By: Confirmed By:LOBO REYES MD
[2018-12-10] MEDS: IBUPROFEN 400 MG TABLET (FP) PO PRN (17:25)
[2018-12-10] MEDS ORDERED: TOPIRAMATE 25 MG TABLET (FP) PO SCH (22:00)
[2018-12-11 07:25] LABS: SERUM IRON SATURATION 11 % (15-55); TOTAL IRON BINDING CAPACITY 201 ug/dL (250-450); UIBC 179 ug/dL (131-425)
[2018-12-11] MEDS ORDERED: LOSARTAN POTASSIUM 50 MG TABLET (FP) PO SCH (10:00)
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
== END 2018-12-10 17:32 | disposition home or self-care (01) | DRG 312 ==
LOC: JER 15:30 → JERBED 21:58 → OBSVTOIN 12-09 14:14 → J4S 12-09 19:38
PROVIDERS: ADMIT Internal Medicine; ATTEND Internal Medicine
DX: I95.1 Orthostatic hypotension (principal); I42.1 Obstructive hypertrophic cardiomyopathy; N39.0 Urinary tract infection, site not specified; E86.0 Dehydration; E11.9 Type 2 diabetes mellitus without complications; I10 Essential (primary) hypertension; G43.909 Migraine, unspecified, not intractable, without status migrainosus; E66.9 Obesity, unspecified; G25.81 Restless legs syndrome; A08.4 Viral intestinal infection, unspecified; S09.90XA Unspecified injury of head, initial encounter; V49.3XXA Car occupant (driver) (passenger) injured in unspecified nontraffic accident, initial encounter; Y93.89 Activity, other specified; Y92.488 Other paved roadways as the place of occurrence of the external cause; Y99.8 Other external cause status
CPT/HCPCS: 36415; 70450-TC; 71046-TC-FY; 72125-TC; 74177-TC; 80048; 80053; 81003; 82150; 82550; 82553; 82607; 82746; 82803; 82962; 83036; 83540; 83550; 83605; 83631; 83690; 83735; 84100; 84439; 84443; 84481; 84484; 85025; 85027; 85610; 85651; 85730; 86140; 86850; 86900; 86901; 87040; 87086; 87804; 93005; 93010; 93306-TC; 93880-TC; 99285-25; G0378; J0131; J1644; J7030

== ENCOUNTER 2019-04-06 12:50 | Observation (INO) | payer OTHER ==
[2019-04-06] MEDS ORDERED: KETOROLAC TROMETHAMINE 30 MG/1 ML VIAL IVPUSH ONE (13:41)
[2019-04-06] MEDS ORDERED: KETOROLAC TROMETHAMINE 30 MG/1 ML VIAL ONE (13:47)
--- NOTE | 2019-04-06 14:25 | PDOC ---
History of Present Illness - General Chief Complaint: Chest Pain Stated Complaint: CHEST PAIN/LEFT SHOULDER PAIN Time Seen by Provider: 04/06/19 13:02 History Source: Patient Exam Limitations: No Limitations - History of Present Illness Initial Comments: 04/06/19 14:00 53-year-old female with recent diagnosis of cardiomyopathy presents to ED with complaints of left-sided chest pain that began her left shoulder which she just describes as a sharp pain worsened with movement for the past 2 days. Patient states did have intermittent left-sided chest pain last week which she describes as sharp without associated symptoms such as dizziness, palpitations, or difficulty breathing. Patient was seen by Dr. Oates yesterday of an initial consultation who recommended patient come to the ER for admission and cardiac workup. Patient[place]CP located in the city. Timing/Duration: intermittent Severity: moderate Associated Symptoms: reports: chest pain Past History - Travel Traveled outside of the country in the last 30 days: No Close contact w/someone who was outside of country & ill: No - Past Medical History Allergies/Adverse Reactions: Allergies Allergy/AdvReac Type Severity Reaction Status Date / Time codeine phosphate Allergy Verified 04/06/19 13:06 [From Tylenol-Codeine] Home Medications: Ambulatory Orders Acetaminophen/Caffeine/Butalb [Fioricet -] 1 tab PO Q4H 04/06/19 Albuterol Sulfate [Ventolin -] 2 mg PO TID 04/06/19 Glimepiride 0 mg PO DAILY 04/06/19 Losartan Potassium 0 mg PO DAILY 04/06/19 Metoprolol Tartrate 25 mg PO DAILY 04/06/19 Nortriptyline HCl [Pamelor -] 0 mg PO DAILY 04/06/19 Omeprazole 0 mg PO DAILY 04/06/19 Asthma: Yes COPD: No Diabetes: Yes HTN: Yes - Surgical History Abdominal Surgery: Yes (LIPOSECTION) - Suicide/Smoking/Psychosocial Hx Smoking History: Never smoked Information on smoking cessation initiated: No Hx Alcohol Use: No Drug/Substance Use Hx: No Substance Use Type: None Hx Substance Use Treatment: No Patient Lives Alone: No Lives with/in: spouse/SO Review of Systems - Review of Systems Able to Perform ROS?: Yes Constitutional: No: Symptoms Reported HEENTM: No: Symptoms Reported Respiratory: No: Symptoms reported Cardiac (ROS): Yes: Chest Pain ABD/GI: No: Symptoms Reported : No: Symptoms Reported Musculoskeletal: Yes: Joint Pain (left shoulder) Integumentary: No: Symptoms Reported Neurological: No: Symptoms reported Hematologic/Lymphatic: No: Symptoms Reported *Physical Exam - Vital Signs Last Vital Signs Temp Pulse Resp BP Pulse Ox 98.7 F 87 18 152/114 H 100 04/06/19 13:03 04/06/19 13:03 04/06/19 13:03 04/06/19 13:03 04/06/19 13:03 - Physical Exam General Appearance: Yes: Nourished, Appropriately Dressed. No: Apparent Distress HEENT: negative: Pale Conjunctivae Neck: positive: Supple. negative: Tender, Decreased range of motion Respiratory/Chest: positive: Chest Tender (left chest wall), Lungs Clear, Normal Breath Sounds. negative: Respiratory Distress, Accessory Muscle Use Cardiovascular: positive: Regular Rhythm, Regular Rate. negative: Murmur Gastrointestinal/Abdominal: positive: Soft. negative: Tenderness Extremity: positive: Normal Inspection, Tender (generalized over left shoulder anteriorly and posteriorly). negative: Normal Range of Motion (unable to perform lateral raise of the left arm greater than 60) Integumentary: positive: Normal Color, Warm, Moist. negative: Rash Neurologic: positive: Motor Strength 5/5 (ambulatory) Heart Score/ECG Review - ECG Intrepretation Rhythm: Regular Rhythm (rate 76, normal sinus rhythm,QTc 460 ms) ED Treatment Course - LABORATORY CBC & Chemistry Diagram: 04/06/19 14:13 04/06/19 14:13 - RADIOLOGY Radiology Studies Ordered: Category Date Time Status CHEST X-RAY PORTABLE* [RAD] Stat Radiology 04/06/19 13:41 Taken - Medications Given in the ED: ED Medications Discontinued Medications Generic Name Dose Route Start Last Admin Trade Name Freq PRN Reason Stop Dose Admin Ketorolac Tromethamine 30 mg 04/06/19 13:41 04/06/19 14:11 Toradol Injection - IVPUSH 04/06/19 13:42 30 mg ONCE ONE Administration Medical Decision Making - Medical Decision Making 04/06/19 14:05 Chief complaint recent diagnosis of HOCM with 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 Exam: Reproducible left-sided chest pain EKG normal elevated BP noted patient's of blood pressure medication approximate 45 minutes prior to arrival Plan: Cardiac workup IV Toradol chest x-ray and consultation to cardiology. 04/06/19 15:27 Laboratory Tests 04/06/19 04/06/19 04/06/19 14:13 14:13 14:13 WBC 6.4 Hgb 13.5 Hct 39.1 Absolute Neuts (auto) 3.9 PT with INR 12.80 INR 1.08 Sodium 137 Potassium 4.5 Chloride 99 Carbon Dioxide 35 H Anion Gap 3 L Random Glucose 201 H Calcium 9.1 Magnesium 2.0 Total Bilirubin 0.2 AST 11 L ALT 18 Alkaline Phosphatase 144 H Troponin I < 0.02 Albumin 3.4 04/06/19 15:41 Chest x-ray shows no evidence of acute pulmonary disease. *DC/Admit/Observation/Transfer Diagnosis at time of Disposition: Chest pain, Hypertrophic obstructive cardiomyopathy - Discharge Dispostion Decision to Admit order: Yes - Referrals - Patient Instructions - Post Discharge Activity
[2019-04-06 14:35] LABS: BASO % 0.7 % (0-2.0); EOS % 2.5 % (0-4.5); HEMATOCRIT 39.1 % (32.4-45.2); HEMOGLOBIN 13.5 GM/dL (10.7-15.3); LYMPH % 30.1 % (8-40); MCH 28.1 pg (25.7-33.7); MCHC 34.5 g/dl (32.0-36.0); MEAN CELL VOLUME 81.4 fl (80-96); MEAN PLT VOLUME 8.4 fl (7.5-11.1); MONO % 6.2 % (3.8-10.2); NEUT % 60.5 % (42.8-82.8); RDW 13.6 % (11.6-15.6); WHITE BLOOD COUNT 6.4 K/mm3 (4.0-10.0)
[2019-04-06 14:44] LABS: PLATELET COUNT 345 K/MM3 (134-434)
[2019-04-06 14:46] LABS: INR 1.08 (0.83-1.09); PROTHROMBIN TIME (PATIENT) 12.8 SEC (9.7-13.0)
[2019-04-06 15:06] LABS: ALBUMIN 3.4 g/dl (3.4-5.0); ALK PHOS 144 U/L (45-117); ANION GAP 3 MMOL/L (8-16); BILIRUBIN,TOTAL 0.2 mg/dL (0.2-1); BLOOD UREA NITROGEN 6.6 mg/dL (7-18); CALCIUM 9.1 mg/dL (8.5-10.1); CHLORIDE 99 mmol/L (98-107); CO2 35 mmol/L (21-32); CREATININE 0.7 mg/dL (0.55-1.3); GLUCOSE,RANDOM 201 mg/dL (74-106); POTASSIUM 4.5 mmol/L (3.5-5.1); SGOT/AST 11 U/L (15-37); SGPT/ALT 18 U/L (13-61); SODIUM 137 mmol/L (136-145); TOT PROT 7.6 g/dl (6.4-8.2)
--- NOTE | 2019-04-06 15:16 | EKG ---
Test Reason : Blood Pressure : / mmHG Vent. Rate : 076 BPM Atrial Rate : 076 BPM P-R Int : 172 ms QRS Dur : 088 ms QT Int : 370 ms P-R-T Axes : 032 -25 017 degrees QTc Int : 416 ms NORMAL SINUS RHYTHM POSSIBLE LEFT ATRIAL ENLARGEMENT BORDERLINE ECG WHEN COMPARED WITH ECG OF 09-DEC-2018 10:28, T WAVE AMPLITUDE HAS INCREASED IN ANTERIOR LEADS QT HAS SHORTENED Confirmed by [facility], BYRON ([id number]) on 04/06/2019 3:16:05 PM Referred By: Confirmed By:BYRON REEDER MD
[2019-04-06] MEDS ORDERED: ACETAMINOPHEN 325 MG TABLET (FP) PO PRN (17:48)
[2019-04-06] MEDS: IBUPROFEN 400 MG TABLET (FP) PO PRN (18:14)
[2019-04-06 18:30] VITALS: BMI 30.1
--- NOTE | 2019-04-06 19:04 | PN ---
Teaching Attending Note Name of Resident: Isabella Reis ATTENDING PHYSICIAN STATEMENT I saw and evaluated the patient. I reviewed the resident's note and discussed the case with the resident. I agree with the resident's findings and plan as documented. SUBJECTIVE: Complains of L shoulder pain and decreased ROM. Denies CP. Apparently referred to ED by Dr. Oates given HX of [facility]. OBJECTIVE: Afebrile, Hemodynamically Stable. Last Vital Signs Temp Pulse Resp BP Pulse Ox 98 F 80 18 156/100 100 04/06/19 18:27 04/06/19 18:27 04/06/19 18:27 04/06/19 18:27 04/06/19 18:31 HEENT - Atraumatic, Normocephalic Heart - S1, S2, soft SM Lungs - Clear to auscultation Abdomen - Soft, non-tender. Bowel Sounds normal. Extremities -no edema, no calf tenderness Laboratory Results - last 24 hr 04/06/19 04/06/19 04/06/19 14:13 14:13 14:13 WBC 6.4 RBC 4.80 Hgb 13.5 Hct 39.1 MCV 81.4 MCH 28.1 MCHC 34.5 RDW 13.6 Plt Count 345 D MPV 8.4 Absolute Neuts (auto) 3.9 Neutrophils % 60.5 Lymphocytes % 30.1 Monocytes % 6.2 Eosinophils % 2.5 Basophils % 0.7 Nucleated RBC % 0 PT with INR 12.80 INR 1.08 Sodium 137 Potassium 4.5 Chloride 99 Carbon Dioxide 35 H Anion Gap 3 L BUN 6.6 L Creatinine 0.7 Est GFR (CKD-EPI)AfAm 115.45 Est GFR (CKD-EPI)NonAf 99.62 Random Glucose 201 H Calcium 9.1 Magnesium 2.0 Total Bilirubin 0.2 AST 11 L ALT 18 Alkaline Phosphatase 144 H Creatine Kinase 86 Troponin I < 0.02 Total Protein 7.6 Albumin 3.4 Current Medications Generic Name Dose Route Start Last Admin Trade Name Freq PRN Reason Stop Dose Admin Acetaminophen 650 mg 04/06/19 17:48 Tylenol - PO Q6H PRN Fever Or Pain Enoxaparin Sodium 40 mg 04/07/19 10:00 Lovenox - SQ DAILY GONZALEZ Glimepiride 2 mg 04/07/19 07:00 Amaryl - PO DAILY@0700 GONZALEZ Ibuprofen 400 mg 04/06/19 17:47 04/06/19 18:14 Motrin - PO 400 mg Q6H PRN Administration PAIN LEVEL 6-10 Insulin Aspart 0 vial 04/06/19 22:00 Novolog Vial Sliding Scale - SQ ACHS [facility] Protocol Losartan Potassium 25 mg 04/07/19 10:00 Cozaar - PO DAILY GONZALEZ Metoprolol Succinate 25 mg 04/07/19 10:00 Toprol Xl - PO DAILY GONZALEZ Nortriptyline HCl 20 mg 04/06/19 22:00 Pamelor - PO HS [facility] Home Medications Medication Instructions Recorded Acetaminophen/Caffeine/Butalb 1 tab PO DAILY PRN 04/06/19 [Fioricet -] Amlodipine Besylate [Norvasc -] 5 mg PO DAILY 04/06/19 Glimepiride 2 mg PO DAILY 04/06/19 Hydrochlorothiazide [Hctz -] 25 mg PO DAILY 04/06/19 Losartan Potassium 25 mg PO DAILY 04/06/19 Metoprolol Tartrate 25 mg PO DAILY 04/06/19 Nortriptyline HCl [Pamelor -] 10 mg PO TID 04/06/19 Omeprazole 20 mg PO DAILY 04/06/19 ASSESSMENT AND PLAN: 53 year old female with history of recently diagnosed Hypertrophic Obstructive Cardiomyopathy, HTN, HLD, DM 2, Diverticulosis s/p partial colectomy, presented with L shoulder paina nd decreased ROM. 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 1. Reported CP Troponin negative Admit to telemonitoring with serial troponin measurements. Cardiology Dr. Oates consulted. NPO after MN in event that Cardiology would like further investigations. 2. L Shoulder pain Unable to extend shoulder fully likely frozen shoulder. Will consult Orthopedics as she may benefit from Steroid intra-articular injection. 3. DM 2 - Maintain on sliding scale. 4. HTN - Continue Losartan, Amlodipine, HCTZ. 5. HLD - lifestyle modification, not on anti-hyperlipidemic medications. DVT Px- SCDs. Heparin held in event of possible intra-articular intervention by Ortho.
--- NOTE | 2019-04-06 19:11 | HP ---
CHIEF COMPLAINT:L shoulder pain PCP:Dr. Oates HISTORY OF PRESENT ILLNESS: 53 yo F w/ PMH of Hypertrophic Obstructive cardiomyopathy, HTN, DM, and history of diverticulosis presented to ED with L sided shoulder pain. Pt was initially at [facility] and they instructed her to come to the ED. 1 day prior, pt was at Dr. Oates's office and he increased her dose of losartan. Today at [facility], she complained of shoulder pain. they did chest xray and shoulder xray which were reported as normal. Pt states that the shoulder pain began 2 days ago. pt states that she has not done anything different before or when the pain began. She describes the pain as sharp pain that radiates down her arm to her hand. Pt states that the pain gets worse when she moves her arm and doesn't hurt as much when she rests it on a platform and keeps it still. Pt states her arm pain is improving now that she got pain medication. Pt states that she gets chronic headaches and that yesterday she had a bad headache but today she did not have headaches. Pt denies chest pain, palpitations, SOB, dizziness, nausea, vomit, stomach pain. ER course was notable for: (1) CXRAY negative (2)troponin neg x1 (3)EKG nsr (4)toradol 30 mg injection 1x PAST MEDICAL HISTORY: HLD, HOCM, HTN, hx of diverticulosis, DM PAST SURGICAL HISTORY: partial colectomy 2004, breast reduction ,2003, liposuction 2003 Social History: Smoking:denies Alcohol:denies Drugs: denies Family History: Allergies codeine phosphate [From Tylenol-Codeine] Allergy (Verified 04/06/19 13:06) HOME MEDICATIONS: Home Medications Medication Instructions Recorded Acetaminophen/Caffeine/Butalb 1 tab PO DAILY PRN 04/06/19 [Fioricet -] Amlodipine Besylate [Norvasc -] 5 mg PO DAILY 04/06/19 Glimepiride 2 mg PO DAILY 04/06/19 Hydrochlorothiazide [Hctz -] 25 mg PO DAILY 04/06/19 Losartan Potassium 25 mg PO DAILY 04/06/19 Metoprolol Tartrate 25 mg PO DAILY 04/06/19 Nortriptyline HCl [Pamelor -] 10 mg PO TID 04/06/19 Omeprazole 20 mg PO DAILY 04/06/19 REVIEW OF SYSTEMS CONSTITUTIONAL: Absent: fever, chills, diaphoresis, generalized weakness, malaise, loss of appetite, weight change HEENT: Absent: rhinorrhea, nasal congestion, throat pain, throat swelling, difficulty swallowing, mouth swelling, ear pain, eye pain, visual changes CARDIOVASCULAR: Absent: chest pain, syncope, palpitations, irregular heart rate, lightheadedness , peripheral edema RESPIRATORY: Absent: cough, shortness of breath, dyspnea with exertion, orthopnea, wheezing, stridor, hemoptysis GASTROINTESTINAL: Absent: abdominal pain, abdominal distension, nausea, vomiting, diarrhea, constipation, melena, hematochezia GENITOURINARY: Absent: dysuria, frequency, urgency, hesitancy, hematuria, flank pain, genital pain MUSCULOSKELETAL: Present: L shoulder pain Absent: myalgia, arthralgia, back pain, neck pain SKIN: Absent: rash, itching, pallor HEMATOLOGIC/IMMUNOLOGIC: Absent: easy bleeding, easy bruising, lymphadenopathy, frequent infections NEUROLOGIC: Present: headache Absent: focal weakness or paresthesias, dizziness, unsteady gait, seizure, mental status changes, bladder or bowel incontinence PHYSICAL EXAMINATION Vital Signs - 24 hr 04/06/19 04/06/19 04/06/19 13:03 17:03 18:17 Temperature 98.7 F 97.6 F 97.9 F Pulse Rate 87 78 Pulse Rate [ 87 Right Radial] Respiratory 18 18 Rate Blood Pressure 152/114 H 156/100 Blood Pressure 145/100 [Left Arm] O2 Sat by Pulse 100 99 Oximetry (%) 04/06/19 04/06/19 18:27 18:31 Temperature 98 F Pulse Rate 80 Pulse Rate [ Right Radial] Respiratory 18 Rate Blood Pressure 156/100 Blood Pressure [Left Arm] O2 Sat by Pulse 100 Oximetry (%) GENERAL: Awake, alert, and fully oriented, in no acute distress. HEAD: Normal with no signs of trauma. LUNGS: Breath sounds equal, clear to auscultation bilaterally. No wheezes, and no crackles. No accessory muscle use. HEART: Regular rate and rhythm, normal S1 and S2 without murmur, rub or gallop. ABDOMEN: Soft, nontender, not distended, normoactive bowel sounds, no guarding MUSCULOSKELETAL: poor range of motion at L AC joint. pt has tenderness to palpation of L shoulder. UPPER EXTREMITIES: 2+ pulses, warm, well-perfused. No cyanosis. No clubbing. No peripheral edema. LOWER EXTREMITIES: 2+ pulses, warm, well-perfused. No calf tenderness. No peripheral edema. PSYCHIATRIC: Cooperative. Good eye contact. Appropriate mood and affect. SKIN: Warm, dry, normal turgor, no rashes or lesions noted, normal capillary refill. Laboratory Results - last 24 hr 04/06/19 04/06/19 04/06/19 14:13 14:13 14:13 WBC 6.4 RBC 4.80 Hgb 13.5 Hct 39.1 MCV 81.4 MCH 28.1 MCHC 34.5 RDW 13.6 Plt Count 345 D MPV 8.4 Absolute Neuts (auto) 3.9 Neutrophils % 60.5 Lymphocytes % 30.1 Monocytes % 6.2 Eosinophils % 2.5 Basophils % 0.7 Nucleated RBC % 0 PT with INR 12.80 INR 1.08 Sodium 137 Potassium 4.5 Chloride 99 Carbon Dioxide 35 H Anion Gap 3 L BUN 6.6 L Creatinine 0.7 Est GFR (CKD-EPI)AfAm 115.45 Est GFR (CKD-EPI)NonAf 99.62 Random Glucose 201 H Calcium 9.1 Magnesium 2.0 Total Bilirubin 0.2 AST 11 L ALT 18 Alkaline Phosphatase 144 H Creatine Kinase 86 Troponin I < 0.02 Total Protein 7.6 Albumin 3.4 ASSESSMENT/PLAN: 53 yo F PMH of Hypertrophic Obstructive cardiomyopathy, HTN, DM, and history of diverticulosis presented to ED with L sided shoulder pain. pt is admitted for L shoulder pain radiating down L arm for 2 days. r/o ACS -troponin negative. continue to trend -EKG NSR -public relations professional, Dr. Oates, consulted -will keep NPO, possible stress test tomorrow -ECHO 12/06 pt was diagnosed with HOCM Shoulder pain -ibuprofen/tylenol prn for pain control -awaiting shoulder XRAY DM -BGM and ISS -c/w lifestyle modification HTN -c/w home losartan, amlodipine, hctz HLD -c/w lifestyle mgmt Migraine headache -tylenol / ibuprofen -no fioricet as per last neuro note during prior admission (12/06) DISPO: tele observation Visit type - Emergency Visit Emergency Visit: Yes ED Registration Date: 04/06/19 Care time: The patient presented to the Emergency Department on the above date and was hospitalized for further evaluation of their emergent condition. - New Patient This patient is new to me today: Yes Date on this admission: 04/06/19 - Critical Care Critical Care patient: No ATTENDING PHYSICIAN STATEMENT I saw and evaluated the patient. I reviewed the resident's note and discussed the case with the resident. I agree with the resident's findings and plan as documented. SUBJECTIVE: OBJECTIVE: ASSESSMENT AND PLAN:
[2019-04-06] MEDS: PANTOPRAZOLE 40 MG TABLET (FP) PO SCH (20:00)
[2019-04-06] MEDS ORDERED: NORTRIPTYLINE HCL 10 MG CAPSULE PO SCH (22:00)
[2019-04-06] MEDS: INSULIN SLIDING SCALE (NOVOLOG) 1 VIAL SQ SCH ×2 (22:14→22:50)
[2019-04-07] MEDS: IBUPROFEN 400 MG TABLET (FP) PO PRN (03:09)
[2019-04-07] MEDS: INSULIN SLIDING SCALE (NOVOLOG) 1 VIAL SQ SCH ×3 (06:03→18:15)
[2019-04-07] MEDS ORDERED: PT OWN MED DRAWER 7, Y5N ONE (06:11)
[2019-04-07 06:39] LABS: BASO % 0.6 % (0-2.0); EOS % 5.2 % (0-4.5); HEMATOCRIT 38.5 % (32.4-45.2); HEMOGLOBIN 13.3 GM/dL (10.7-15.3); LYMPH % 37.2 % (8-40); MCH 28.2 pg (25.7-33.7); MCHC 34.6 g/dl (32.0-36.0); MEAN CELL VOLUME 81.4 fl (80-96); MEAN PLT VOLUME 8.4 fl (7.5-11.1); MONO % 8.7 % (3.8-10.2); NEUT % 48.3 % (42.8-82.8); PLATELET COUNT 292 K/MM3 (134-434); RBC 4.73 M/mm3 (3.60-5.2); RDW 13.8 % (11.6-15.6)
[2019-04-07] MEDS ORDERED: GLIMEPIRIDE 2 MG TABLET (FP) PO SCH (07:00)
[2019-04-07 07:04] LABS: ANION GAP 6 MMOL/L (8-16); BLOOD UREA NITROGEN 7.8 mg/dL (7-18); CALCIUM 8.4 mg/dL (8.5-10.1); CHLORIDE 101 mmol/L (98-107); CO2 31 mmol/L (21-32); CREATININE 0.6 mg/dL (0.55-1.3); GLUCOSE,RANDOM 140 mg/dL (74-106); MAGNESIUM 1.9 mg/dL (1.8-2.4); PHOSPHOROUS 4.2 mg/dL (2.5-4.9); POTASSIUM 3.7 mmol/L (3.5-5.1); SODIUM 139 mmol/L (136-145)
[2019-04-07] MEDS ORDERED: amLODIPine BESYLATE 5 MG TABLET (FP) PO SCH (10:00)
[2019-04-07] MEDS ORDERED: ENOXAPARIN NA (PORCINE) 40 MG/0.4 ML DISP.SYRIN SQ SCH (10:00)
[2019-04-07] MEDS ORDERED: LOSARTAN POTASSIUM 25 MG TABLET PO SCH (10:00)
[2019-04-07] MEDS ORDERED: metoPROLOL SUCCINATE 25 MG TAB.SR.24H (FP) PO SCH (10:00)
[2019-04-07] MEDS: PANTOPRAZOLE 40 MG TABLET (FP) PO SCH (10:15)
--- NOTE | 2019-04-07 11:31 | CON.CARD ---
Consult Consult Specialty:: Cardiology Referred by:: Hospitalist Medicine Reason for Consultation:: HCM - History of Present Illness Chief Complaint: Left shoulder pain and decreased ROM History of Present Illness: 53 yo HTN, DM, hypertrophic cardiomyopathy with h/o syncope presents for complaint of left shoulder pain, tenderness and decreased ROM, relief with Toradol IM in ED. Denies CP, dyspnea, near or recurrent true syncope, palpitations, orthopnea, PND or LE edema. - History Source History Provided By: Patient Limitations to Obtaining History: No Limitations - Past Medical History Cardio/Vascular: Yes: HTN Endocrine: Yes: Diabetes Mellitus - Alcohol/Substance Use Hx Alcohol Use: No - Smoking History Smoking history: Never smoked Home Medications - Allergies Allergies/Adverse Reactions: Allergies Allergy/AdvReac Type Severity Reaction Status Date / Time codeine phosphate Allergy Verified 04/06/19 13:06 [From Tylenol-Codeine] - Home Medications Home Medications: Ambulatory Orders Acetaminophen/Caffeine/Butalb [Fioricet -] 1 tab PO DAILY PRN 04/06/19 Glimepiride 2 mg PO DAILY 04/06/19 Losartan Potassium 25 mg PO DAILY 04/06/19 Metoprolol Tartrate 25 mg PO DAILY 04/06/19 Nortriptyline HCl [Pamelor -] 10 mg PO TID 04/06/19 Omeprazole 20 mg PO DAILY 04/06/19 Review of Systems - Review of Systems Musculoskeletal: reports: Decreased ROM, Joint Pain Vital Signs: Vital Signs Temperature 98.1 F 04/07/19 10:00 Pulse Rate 84 04/07/19 10:00 Respiratory Rate 15 04/07/19 10:00 Blood Pressure 169/99 04/07/19 10:00 O2 Sat by Pulse Oximetry (%) 100 04/07/19 09:00 Constitutional: Yes: No Distress, Calm Neck: Yes: Supple Respiratory: Yes: Regular, CTA Bilaterally Gastrointestinal: Yes: Normal Bowel Sounds, Soft Cardiovascular: Yes: Regular Rate and Rhythm Heart Sounds: Yes: S1, S2 Murmur: Yes: Systolic Murmur, Grade 2 Musculoskeletal: Yes: Joint Stiffness (Left shoulder pain, tenderness, decreased ROM), Other (Tenderness over subacromial bursa/tendon) Edema: No - Other Data Labs, Other Data: CBC, BMP 04/07/19 05:50 04/07/19 05:50 INR, PTT INR 1.08 (0.83-1.09) 04/06/19 14:13 Troponin, BNP 04/06/19 04/07/19 14:13 05:50 Troponin I < 0.02 < 0.02 Troponin, BNP 04/06/19 04/07/19 14:13 05:50 Troponin I < 0.02 < 0.02 NSR @ 76 LAE Ejection Fraction %: LVEF > or = 40 % Imaging - Results Chest X-ray: Report Reviewed (NAD) X-ray: Pending Problem List - Problems (1) Subacromial bursitis of left shoulder joint Code(s): M75.52 - BURSITIS OF LEFT SHOULDER (2) Hypertrophic obstructive cardiomyopathy Code(s): I42.1 - OBSTRUCTIVE HYPERTROPHIC CARDIOMYOPATHY (3) Syncope Code(s): R55 - SYNCOPE AND COLLAPSE Qualifiers: Syncope type: unspecified Qualified Code(s): R55 - Syncope and collapse (4) Diabetes Code(s): E11.9 - TYPE 2 DIABETES MELLITUS WITHOUT COMPLICATIONS Qualifiers: Diabetes mellitus type: type 2 (5) HTN (hypertension) Code(s): I10 - ESSENTIAL (PRIMARY) HYPERTENSION Qualifiers: Hypertension type: essential hypertension Qualified Code(s): I10 - Essential (primary) hypertension Assessment/Plan 12/09/2018 Echo: Moderate asymmetric LVH, systolic anterior motion of mitral valve, mild MR, late peaking systolic gradient PG 50-60 mmHg localized to LVOT suggestive of HOCM and mild TR 1. Left shoulder pain and decreased ROM suspicious for subacromial bursitis/ biceps tendonitis 2. Hypertrophic obstructive cardiomyopathy 3. H/o syncope suggestive of HOCM exacerbated by probable dehydration, neurocardiogenic syncope unlikely, sustained arrhythmia unlikely 4. HTN 5. DM 6. Hypercholesterolemia 7. History of diverticulitis post partial colectomy PLAN: 1. NSAIDs with GI protection as needed, ortho eval for arthrocentesis 2. Increase Toprol XL 50 qd and losartan 25 qd with uptitration as hemodynamics tolerate 3. Norvasc previously d/danyell, avoid diuretics 4. Additional evaluation as outpatient including cardiac MRI, holter, ETT, possible ICD implant per risk stratification studies 5. Thank you for consultative opportunity
--- NOTE | 2019-04-07 13:25 | PN ---
Teaching Attending Note Name of Resident: Isabella Reis ATTENDING PHYSICIAN STATEMENT I saw and evaluated the patient. I reviewed the resident's note and discussed the case with the resident. I agree with the resident's findings and plan as documented. SUBJECTIVE: Complains of ongoing L shoulder pain and decreased ROM. Denies CP. OBJECTIVE: Afebrile, Hemodynamically Stable. Last Vital Signs Temp Pulse Resp BP Pulse Ox 98.1 F 84 15 169/99 100 04/07/19 10:00 04/07/19 10:00 04/07/19 10:00 04/07/19 10:00 04/07/19 09:00 Heart - S1, S2, soft SM Lungs - Clear to auscultation Abdomen - Soft, non-tender. Bowel Sounds normal. Extremities -no edema, no calf tenderness MS - L shoulder pain and decreased ROM. Laboratory Results - last 24 hr 04/06/19 04/06/19 04/06/19 14:13 14:13 14:13 WBC 6.4 RBC 4.80 Hgb 13.5 Hct 39.1 MCV 81.4 MCH 28.1 MCHC 34.5 RDW 13.6 Plt Count 345 D MPV 8.4 Absolute Neuts (auto) 3.9 Neutrophils % 60.5 Lymphocytes % 30.1 Monocytes % 6.2 Eosinophils % 2.5 Basophils % 0.7 Nucleated RBC % 0 PT with INR 12.80 INR 1.08 Sodium 137 Potassium 4.5 Chloride 99 Carbon Dioxide 35 H Anion Gap 3 L BUN 6.6 L Creatinine 0.7 Est GFR (CKD-EPI)AfAm 115.45 Est GFR (CKD-EPI)NonAf 99.62 POC Glucometer Random Glucose 201 H Calcium 9.1 Phosphorus Magnesium 2.0 Total Bilirubin 0.2 AST 11 L ALT 18 Alkaline Phosphatase 144 H Creatine Kinase 86 Troponin I < 0.02 Total Protein 7.6 Albumin 3.4 04/06/19 04/07/19 04/07/19 22:07 05:50 05:50 WBC 5.0 RBC 4.73 Hgb 13.3 Hct 38.5 MCV 81.4 MCH 28.2 MCHC 34.6 RDW 13.8 Plt Count 292 MPV 8.4 Absolute Neuts (auto) 2.4 Neutrophils % 48.3 D Lymphocytes % 37.2 D Monocytes % 8.7 Eosinophils % 5.2 H D Basophils % 0.6 Nucleated RBC % 0 PT with INR INR Sodium 139 Potassium 3.7 Chloride 101 Carbon Dioxide 31 Anion Gap 6 L BUN 7.8 Creatinine 0.6 Est GFR (CKD-EPI)AfAm 121.46 Est GFR (CKD-EPI)NonAf 104.80 POC Glucometer 245 Random Glucose 140 H Calcium 8.4 L Phosphorus 4.2 Magnesium 1.9 Total Bilirubin AST ALT Alkaline Phosphatase Creatine Kinase 59 Troponin I < 0.02 Total Protein Albumin 04/07/19 04/07/19 05:57 11:54 WBC RBC Hgb Hct MCV MCH MCHC RDW Plt Count MPV Absolute Neuts (auto) Neutrophils % Lymphocytes % Monocytes % Eosinophils % Basophils % Nucleated RBC % PT with INR INR Sodium Potassium Chloride Carbon Dioxide Anion Gap BUN Creatinine Est GFR (CKD-EPI)AfAm Est GFR (CKD-EPI)NonAf POC Glucometer 133 169 Random Glucose Calcium Phosphorus Magnesium Total Bilirubin AST ALT Alkaline Phosphatase Creatine Kinase Troponin I Total Protein Albumin Current Medications Generic Name Dose Route Start Last Admin Trade Name Freq PRN Reason Stop Dose Admin Acetaminophen 650 mg 04/06/19 17:48 04/06/19 22:35 Tylenol - PO 650 mg Q6H PRN Administration Fever Or Pain Ibuprofen 400 mg 04/06/19 17:47 04/07/19 03:09 Motrin - PO 400 mg Q6H PRN Administration PAIN LEVEL 6-10 Insulin Aspart 0 vial 04/06/19 22:00 04/07/19 12:12 Novolog Vial Sliding Scale - SQ Not Given ACHS GONZALEZ Protocol Losartan Potassium 25 mg 04/07/19 10:00 04/07/19 10:15 Cozaar - PO 25 mg DAILY GONZALEZ Administration Metoprolol Succinate 50 mg 04/07/19 11:51 Toprol Xl - PO DAILY GONZALEZ Nortriptyline HCl 20 mg 04/06/19 22:00 04/06/19 22:36 Pamelor - PO 20 mg HS GONZALEZ Administration Pantoprazole Sodium 40 mg 04/06/19 19:15 04/07/19 10:15 Protonix - PO 40 mg DAILY GONZALEZ Administration Home Medications Medication Instructions Recorded Acetaminophen/Caffeine/Butalb 1 tab PO DAILY PRN 04/06/19 [Fioricet -] Glimepiride 2 mg PO DAILY 04/06/19 Losartan Potassium 25 mg PO DAILY 04/06/19 Metoprolol Tartrate 25 mg PO DAILY 04/06/19 Nortriptyline HCl [Pamelor -] 10 mg PO TID 04/06/19 Omeprazole 20 mg PO DAILY 04/06/19 ASSESSMENT AND PLAN: 53 year old female with history of recently diagnosed Hypertrophic Obstructive Cardiomyopathy, HTN, HLD, DM 2, Diverticulosis s/p partial colectomy, presented with L shoulder pain and decreased ROM. Referred to ED by her Credit Card Specialist Dr. Oates. 1. Reported CP Troponin negative No overnight tele events. Cardiology consulted - Toprol increased to 50mg and Losartan 25mg, with up- titration as out-patient. For Cardio follow up for further studies including Cardiac MRI, Holter Monitor, ETT, and possible ICD placement as per Cardio. 2. L Shoulder pain and decreased ROM Unable to extend shoulder fully - rotator cuff injury vs adhesive capsulitis. Orthopedics consulted as she may benefit from Steroid intra-articular injection. 3. DM 2 - resume Glimepiride on discharge. 4. HTN - Continue Losartan, Metoprolol. Norvasc and HCTZ discontinued. 5. HLD - lifestyle modification, not on anti-hyperlipidemic medications. DVT Px- SCDs. Once evaluated by Ortho, she can be discharged with recommendations as per Cardiology and Orthopedics.
--- NOTE | 2019-04-07 18:02 | PN ---
Physical Exam: SUBJECTIVE: Patient seen and examined OBJECTIVE: Vital Signs Period Temp Pulse Resp BP Sys/George Pulse Ox Last 24 Hr 97.8 F-98.1 F 64-84 15-18 143-169/99-112 100-100 GENERAL: The patient is awake, alert, and fully oriented, in no acute distress. HEAD: Normal with no signs of trauma. EYES: PERRL, extraocular movements intact, sclera anicteric, conjunctiva clear. No ptosis. ENT: Ears normal, nares patent, oropharynx clear without exudates, moist mucous membranes. NECK: Trachea midline, full range of motion, supple. LUNGS: Breath sounds equal, clear to auscultation bilaterally, no wheezes, no crackles, no accessory muscle use. HEART: Regular rate and rhythm, S1, S2 without murmur, rub or gallop. ABDOMEN: Soft, nontender, nondistended, normoactive bowel sounds, no guarding, no rebound, no hepatosplenomegaly, no masses. EXTREMITIES: 2+ pulses, warm, well-perfused, no edema. NEUROLOGICAL: Cranial nerves II through XII grossly intact. Normal speech, gait not observed. PSYCH: Normal mood, normal affect. SKIN: Warm, dry, normal turgor, no rashes or lesions noted Laboratory Results - last 24 hr 04/06/19 04/07/19 04/07/19 22:07 05:50 05:50 WBC 5.0 RBC 4.73 Hgb 13.3 Hct 38.5 MCV 81.4 MCH 28.2 MCHC 34.6 RDW 13.8 Plt Count 292 MPV 8.4 Absolute Neuts (auto) 2.4 Neutrophils % 48.3 D Lymphocytes % 37.2 D Monocytes % 8.7 Eosinophils % 5.2 H D Basophils % 0.6 Nucleated RBC % 0 Sodium 139 Potassium 3.7 Chloride 101 Carbon Dioxide 31 Anion Gap 6 L BUN 7.8 Creatinine 0.6 Est GFR (CKD-EPI)AfAm 121.46 Est GFR (CKD-EPI)NonAf 104.80 POC Glucometer 245 Random Glucose 140 H Calcium 8.4 L Phosphorus 4.2 Magnesium 1.9 Creatine Kinase 59 Troponin I < 0.02 04/07/19 04/07/19 04/07/19 05:57 11:54 16:52 WBC RBC Hgb Hct MCV MCH MCHC RDW Plt Count MPV Absolute Neuts (auto) Neutrophils % Lymphocytes % Monocytes % Eosinophils % Basophils % Nucleated RBC % Sodium Potassium Chloride Carbon Dioxide Anion Gap BUN Creatinine Est GFR (CKD-EPI)AfAm Est GFR (CKD-EPI)NonAf POC Glucometer 133 169 182 Random Glucose Calcium Phosphorus Magnesium Creatine Kinase Troponin I Active Medications Generic Name Dose Route Start Last Admin Trade Name Freq PRN Reason Stop Dose Admin Acetaminophen 650 mg 04/06/19 17:48 04/06/19 22:35 Tylenol - PO 650 mg Q6H PRN Administration Fever Or Pain Ibuprofen 400 mg 04/06/19 17:47 04/07/19 03:09 Motrin - PO 400 mg Q6H PRN Administration PAIN LEVEL 6-10 Insulin Aspart 0 vial 04/06/19 22:00 04/07/19 12:12 Novolog Vial Sliding Scale - SQ Not Given ACHS GONZALEZ Protocol Losartan Potassium 25 mg 04/07/19 10:00 04/07/19 10:15 Cozaar - PO 25 mg DAILY GONZALEZ Administration Metoprolol Succinate 50 mg 04/07/19 11:51 Toprol Xl - PO DAILY GONZALEZ Nortriptyline HCl 20 mg 04/06/19 22:00 04/06/19 22:36 Pamelor - PO 20 mg HS GONZALEZ Administration Pantoprazole Sodium 40 mg 04/06/19 19:15 04/07/19 10:15 Protonix - PO 40 mg DAILY GONZALEZ Administration ASSESSMENT/PLAN: 53 yo F PMH of Hypertrophic Obstructive cardiomyopathy, HTN, DM, and history of diverticulosis presented to ED with L sided shoulder pain. pt is admitted for L shoulder pain radiating down L arm for 2 days. r/o ACS -troponin negative x2 -EKG NSR -volumetric weigher, Dr. Oates, consulted and he recommends outpt f/u for further studies including Cardiac MRI, Holter Monitor, ETT, and possible ICD placement -cardio recs of increasing to losartan 25 and Toprol 50 -ECHO 12/06 pt was diagnosed with HOCM Shoulder pain -ibuprofen/tylenol prn for pain control -pending shoulder XRAY -ortho consulted, pt may benefit from steroid injection DM -BGM and ISS -c/w lifestyle modification -pt should resume Glimepiride on DC HTN -c/w home losartan, amlodipine, hctz HLD -c/w lifestyle mgmt Migraine headache -tylenol / ibuprofen -no fioricet as per last neuro note during prior admission (12/06) DVT ppx: SCDs DISPO: once pt is medically optimized, may be discharged home Visit type - Emergency Visit Emergency Visit: No - New Patient This patient is new to me today: No - Critical Care Critical Care patient: No - Discharge Referral Referred to [facility] No ATTENDING PHYSICIAN STATEMENT I saw and evaluated the patient. I reviewed the resident's note and discussed the case with the resident. I agree with the resident's findings and plan as documented. SUBJECTIVE: OBJECTIVE: ASSESSMENT AND PLAN:
--- NOTE | 2019-04-07 18:32 | CONSULT ---
Consult - text type - Consultation Consultation Note: ORTHOPEDIC SURGERY CONSULTATION NOTE Department of Orthopedic Surgery HISTORY OF PRESENT ILLNESS Ms. Stokes is a 53 year old right hand dominant female w/ PMH of Hypertrophic Obstructive cardiomyopathy, HTN, DM, and history of diverticulosis presented to ED yesterday with L sided shoulder pain. Patient was initially seen at [facility] and they instructed her to come to the ED. She was admitted to rule out ACS. The orthopedic service was consulted for left shoulder pain. The patient denies any injury to her shoulder. She states it started 3 days ago, and she has pain with any flexion or abduction of her shoulder. Denies numbness, tingling or other constitutional complaints. Denies tobacco use, drug use, alcohol abuse. The patient lives with family and uses no assistive devices at baseline. FAMILY HISTORY non-contributory REVIEW OF SYMPTOMS A twelve-point review of systems was performed and was negative except as noted in HPI. PHYSICAL EXAM Constitutional: Alert and oriented to person, place, and time. Appears well- developed and well-nourished. No acute distress, appropriate mood and affect. Right Upper Extremity: Skin warm, dry, and intact; no lesions, rashes or ulcers noted. Muscle mass equal and symmetric to contralateral side. No atrophy noted. No masses or effusions noted. No tenderness to palpation all joints; nontender throughout rest of extremity. Full passive and active ROM, free from pain. Joints stable with no pathologic laxity. M/R/U/MSK/AX motor intact; SILT distally; 2+ radial pulses; Cap refill brisk. Tone and reflexes normal. Left Upper Extremity: Skin warm, dry, and intact; no lesions, rashes or ulcers noted. Muscle mass equal and symmetric to contralateral side. No atrophy noted. No masses or effusions noted.Tender to palpation over the lateral shoulder. nontender throughout rest of extremity. LROM of the left shoulder in flexion and abduction secondary to pain. Full passive and active ROM of the elbow and writs, free from pain. Joints stable with no pathologic laxity. M/R/U/MSK motor intact; SILT distally; 2+ radial pulses; Cap refill brisk. Tone and reflexes normal. Active Problems Problem Status Category Onset Chest pain Acute Medical Hypertrophic obstructive cardiomyopathy Acute Medical Subacromial bursitis of left shoulder joint Acute Medical Past Medical History Cardio/Vascular HTN Endocrine Diabetes Mellitus Social History Smoking history Never smoked Hx Alcohol Use No Allergies Allergy/AdvReac Type Severity Reaction Status Date / Time codeine phosphate Allergy Verified 04/06/19 13:06 [From Tylenol-Codeine] Active Medications Generic Name Dose Route Start Last Admin Trade Name Freq PRN Reason Stop Dose Admin Acetaminophen 650 mg 04/06/19 17:48 04/06/19 22:35 Tylenol - PO 650 mg Q6H PRN Administration Fever Or Pain Ibuprofen 400 mg 04/06/19 17:47 04/07/19 03:09 Motrin - PO 400 mg Q6H PRN Administration PAIN LEVEL 6-10 Insulin Aspart 0 vial 04/06/19 22:00 04/07/19 18:15 Novolog Vial Sliding Scale - SQ Not Given ACHS GONZALEZ Protocol Losartan Potassium 25 mg 04/07/19 10:00 04/07/19 10:15 Cozaar - PO 25 mg DAILY GONZALEZ Administration Metoprolol Succinate 50 mg 04/07/19 11:51 Toprol Xl - PO DAILY GONZALEZ Nortriptyline HCl 20 mg 04/06/19 22:00 04/06/19 22:36 Pamelor - PO 20 mg HS GONZALEZ Administration Pantoprazole Sodium 40 mg 04/06/19 19:15 04/07/19 10:15 Protonix - PO 40 mg DAILY GONZALEZ Administration Vital Signs (last) Temp Pulse Resp BP Pulse Ox 98.1 F 80 16 154/112 H 100 04/07/19 10:00 04/07/19 13:47 04/07/19 13:47 04/07/19 13:47 04/07/19 09:00 Intake and Output 04/05/19 04/06/19 04/07/19 23:59 23:59 23:59 Intake Total 200 400 Balance 200 400 Intake: Oral 200 400 Other: Voiding Method Toilet # Unmeasured Voids Void 2 2 Bowel Movement No No Weight 175 lb 7.807 oz Height 5 ft 4 in Body Mass Index (BMI) 30.1 Weight Measurement Method Built in [facility] Weight Measurement Method Est/Stated by Patient Laboratory 04/07/19 05:50 04/07/19 05:50 PT with INR 12.80 SEC (9.7-13.0) 04/06/19 14:13 IMAGING I personally reviewed all radiographs. They demonstrate left shoulder rotator cuff calcific tendinitis. ASSESSMENT AND PLAN Ms. Stokes is a 53 year old female presenting with a left shoulder rotator cuff calcific tendinitis. We have reviewed the imaging and clinical findings in detail, as well as their potential implications. - Pain control. Consider medrol dosepak for pain control. Needs to follow glucose levels as she's diabetic. - Sling for comfort to LUE. - Physical therapy, WBAT - Follow up in the office for consideration of cortisone injection versus MRI as outpatient. - No further orthopedic intervention at this time. All questions were answered. Thank you for involving our team in the care of this patient. Please have patient follow up in our office next week. [phone].
[2019-04-07 18:38] VITALS: BP 139/110; PULSE 94; TEMP 98.2
--- NOTE | 2019-04-07 19:00 | DS ---
Physical Exam: SUBJECTIVE: Patient seen and examined at bedside. pt complains of shoulder pain and decreased ROM. pt denies CP and SOB. OBJECTIVE: Vital Signs Period Temp Pulse Resp BP Sys/George Pulse Ox Last 24 Hr 97.8 F-98.2 F 64-94 15-18 139-169/99-112 100-100 PHYSICAL EXAM GENERAL: The patient is awake, alert, and fully oriented, in no acute distress. LUNGS: Breath sounds equal, clear to auscultation bilaterally, no wheezes, no crackles, no accessory muscle use. HEART: Regular rate and rhythm, S1, S2 without murmur, rub or gallop. ABDOMEN: Soft, nontender, nondistended, normoactive bowel sounds EXTREMITIES: 2+ pulses, warm, well-perfused, no edema. decreased ROM on LUE SKIN: Warm, dry, normal turgor, no rashes or lesions noted. LABS Laboratory Results - last 24 hr 04/06/19 04/07/19 04/07/19 22:07 05:50 05:50 WBC 5.0 RBC 4.73 Hgb 13.3 Hct 38.5 MCV 81.4 MCH 28.2 MCHC 34.6 RDW 13.8 Plt Count 292 MPV 8.4 Absolute Neuts (auto) 2.4 Neutrophils % 48.3 D Lymphocytes % 37.2 D Monocytes % 8.7 Eosinophils % 5.2 H D Basophils % 0.6 Nucleated RBC % 0 Sodium 139 Potassium 3.7 Chloride 101 Carbon Dioxide 31 Anion Gap 6 L BUN 7.8 Creatinine 0.6 Est GFR (CKD-EPI)AfAm 121.46 Est GFR (CKD-EPI)NonAf 104.80 POC Glucometer 245 Random Glucose 140 H Calcium 8.4 L Phosphorus 4.2 Magnesium 1.9 Creatine Kinase 59 Troponin I < 0.02 HOSPITAL COURSE: Date of Admission:04/06/19 53 yo F PMH of Hypertrophic Obstructive cardiomyopathy, HTN, DM, and history of diverticulosis presented to ED with L sided shoulder pain. pt is admitted for L shoulder pain radiating down L arm for 2 days.pt was admitted to r/o ACS and work up Shoulder pain. throughout the hospital course, pt had 2 negative troponins, EKG in NSR. Pt was seen by her cloth picker, Dr. Oates who recommends outpt f/u for further studies including Cardiac MRI, Holter Monitor, ETT, and possible ICD placement. pt recommended to increase losartan to 25 and metoprolol to 50. for the shoulder pain, an XR was done and shows no osseous injury and pt seen by orthopedics. Pt has l shoulder rotator cuff calcific tendonitis. pt is given medrol dose serge and recommended to have PT. pt should follow up outpt with ortho. Minutes to complete discharge: 37 Discharge Summary Reason For Visit: CHEST PAIN Current Active Problems Chest pain (Acute) Hypertrophic obstructive cardiomyopathy (Acute) Subacromial bursitis of left shoulder joint (Acute) Condition: Good - Instructions Diet, Activity, Other Instructions: You came into the hospital for shoulder pain and chest pain. You were treated with pain medications. You had X-Ray of your chest showed normal findings. You were seen by the cloth picker to further manage your heart condition. You are recommended to make some changes to your medications. Medication changes: -Please increase your Toprol to 50mg daily -Please take losartan 25mg daily -Please do not continue to take Amlodipine -Please do not continue to take hydrochlorothiazide You were seen and evaluated by Orthopedic surgeon who has diagnosed you with Left calcific tendonitis of your shoulder and recommends a Medrol dose pack and out-patient follow up with him within the week. Please closely monitor your blood glucose while on the medrol dose pack. Please continue your other home medications as prescribed. -Please follow up with your cloth picker when you leave the hospital. We recommend you to get additional testing outside of the hospital, including, but not limited to a cardiac MRI and holter monitoring. -Please follow up with your neurologist to further manage your migraines. -Please follow up with your primary care physician regarding your health conditions. -Please follow up with your orthopedic physician regarding your shoulder pain. Please continue to follow a low sugar/ low fat diet. Please return to the ER if you have any signs or symptoms of chest pain, shortness of breath, uncontrollable fever, chills, nausea, vomiting, numbness, tingling, or weakness in any part of your body, changes in vision, or slurred speech. Please return to the ER if symptoms persist, worsen, or new symptoms arise. Referrals: Moody Oates MD [Staff Physician] - Disposition: HOME - Home Medications Comprehensive Discharge Medication List: Ambulatory Orders Acetaminophen/Caffeine/Butalb [Fioricet -] 1 tab PO DAILY PRN 04/06/19 Glimepiride 2 mg PO DAILY 04/06/19 Losartan Potassium 25 mg PO DAILY 04/06/19 Nortriptyline HCl [Pamelor -] 10 mg PO TID 04/06/19 Omeprazole 20 mg PO DAILY 04/06/19 Glimepiride [Amaryl -] 2 mg PO DAILY@0700 tablet 04/07/19 Losartan Potassium [Cozaar -] 25 mg PO DAILY tablet 04/07/19 Methylprednisolone [Medrol Dose Serge] 4 mg PO ASDIR #21 tablet 04/07/19 Metoprolol Tartrate 50 mg PO DAILY #30 tablet 04/07/19 This patient is new to me today: No Emergency Visit: No Critical Care patient: No - Discharge Referral Referred to [facility] No ATTENDING PHYSICIAN STATEMENT I saw and evaluated the patient. I reviewed the resident's note and discussed the case with the resident. I agree with the resident's findings and plan as documented. SUBJECTIVE: OBJECTIVE: ASSESSMENT AND PLAN:
== END 2019-04-07 20:05 | disposition home or self-care (01) ==
LOC: JER 12:50 → INTOOBSV 15:34 → JERBED 15:34 → UNDOADMOB 15:34 → JERBED 17:44 → J2W 18:05
PROC: 3E0333Z Introduction of Anti-inflammatory into Peripheral Vein, Percutaneous Approach (ICD-10-PCS; principal; 2019-04-06)
DX: R07.89 Other chest pain (principal); I10 Essential (primary) hypertension; E11.9 Type 2 diabetes mellitus without complications; I42.1 Obstructive hypertrophic cardiomyopathy; E78.5 Hyperlipidemia, unspecified; M75.52 Bursitis of left shoulder; Z88.5 Allergy status to narcotic agent
CPT/HCPCS: 36415; 71045-TC-FY; 73030-TC-LT-FY; 80048; 80053; 82550; 82962; 83735; 84100; 84484; 85025; 85610; 93005; 93010; 96374; 99283-25; G0378

== ENCOUNTER 2021-03-03 19:03 | Observation (INO) | payer OTHER ==
[2021-03-03 19:18] VITALS: BMI 30.9
[2021-03-03 20:47] LABS: BASO % 0.7 % (0-2.0); EOS % 0.7 % (0-4.5); HEMOGLOBIN 13.7 GM/dL (10.7-15.3); LYMPH % 28.3 % (8-40); MCH 27.8 pg (25.7-33.7); MCHC 33.6 g/dl (32.0-36.0); MEAN CELL VOLUME 82.9 fl (80-96); MEAN PLT VOLUME 8.4 fl (7.5-11.1); MONO % 8.4 % (3.8-10.2); NEUT % 61.9 % (42.8-82.8); PLATELET COUNT 273 10^3/uL (134-434); RBC 4.94 M/mm3 (3.60-5.2); RDW 14.2 % (11.6-15.6); WHITE BLOOD COUNT 5.8 K/mm3 (4.0-10.0)
[2021-03-03 21:04] LABS: URINE APPEARANCE CLEAR; URINE BILIRUBIN NEGATIVE (NEGATIVE); URINE COLOR YELLOW; URINE GLUCOSE (UA) 3+ (NEGATIVE); URINE KETONE NEGATIVE (NEGATIVE); URINE LEUK ESTERASE NEGATIVE (NEGATIVE); URINE NITRITE NEGATIVE (NEGATIVE); URINE PROTEIN TRACE (NEGATIVE)
[2021-03-03 21:08] LABS: CHLORIDE 104 mmol/L (98-107); SODIUM 140 mmol/L (136-145)
[2021-03-03 21:12] LABS: ALBUMIN 3.3 g/dl (3.4-5.0); ANION GAP 5 MMOL/L (8-16); CALCIUM 8.3 mg/dL (8.5-10.1); CO2 30 mmol/L (21-32); GLUCOSE,RANDOM 318 mg/dL (74-106)
[2021-03-03 21:13] LABS: BLOOD UREA NITROGEN 10.8 mg/dL (7-18); MAGNESIUM 1.9 mg/dL (1.8-2.4)
[2021-03-03 21:15] LABS: SGPT/ALT 34 U/L (13-61)
[2021-03-03 21:16] LABS: CREATININE 0.8 mg/dL (0.55-1.3); SGOT/AST 22 U/L (15-37)
[2021-03-03 21:17] LABS: BILIRUBIN,TOTAL 0.3 mg/dL (0.2-1); TOT PROT 6.9 g/dl (6.4-8.2)
[2021-03-03 21:18] LABS: ALK PHOS 154 U/L (45-117)
[2021-03-03 21:55] LABS: N-TERMINAL BNP 694.8 pg/ml (5-125)
[2021-03-04] MEDS ORDERED: ASPIRIN 81 MG CHEWABLE TABLETS PO ONE (00:40)
[2021-03-04] MEDS ORDERED: ASPIRIN 81 MG CHEWABLE TABLETS ONE ×2 (01:05→09:24)
[2021-03-04] MEDS ORDERED: ACETAMINOPHEN 325 MG TABLET (FP) PO PRN (03:05)
[2021-03-04 06:13] LABS: BASO % 0.6 % (0-2.0); EOS % 1.2 % (0-4.5); HEMATOCRIT 39.8 % (32.4-45.2); LYMPH % 34.4 % (8-40); MCH 27.4 pg (25.7-33.7); MCHC 32.6 g/dl (32.0-36.0); MEAN CELL VOLUME 84.1 fl (80-96); MEAN PLT VOLUME 8.7 fl (7.5-11.1); MONO % 10.5 % (3.8-10.2); NEUT % 53.3 % (42.8-82.8); PLATELET COUNT 223 10^3/uL (134-434); RBC 4.73 M/mm3 (3.60-5.2); RDW 13.9 % (11.6-15.6); WHITE BLOOD COUNT 5.8 K/mm3 (4.0-10.0)
[2021-03-04 06:36] LABS: CHLORIDE 105 mmol/L (98-107); SODIUM 140 mmol/L (136-145)
[2021-03-04 06:40] LABS: ANION GAP 5 MMOL/L (8-16); CALCIUM 8.2 mg/dL (8.5-10.1); CO2 29 mmol/L (21-32); GLUCOSE,RANDOM 224 mg/dL (74-106)
[2021-03-04 06:41] LABS: ALBUMIN 2.9 g/dl (3.4-5.0)
[2021-03-04 06:43] LABS: CHOLESTEROL 146 mg/dL (50-200); CREATININE 0.6 mg/dL (0.55-1.3); PHOSPHOROUS 3.2 mg/dL (2.5-4.9); SGPT/ALT 27 U/L (13-61); TRIGLYCERIDES 125 mg/dL (0-150)
[2021-03-04 06:44] LABS: BILIRUBIN,TOTAL 0.3 mg/dL (0.2-1); LDL CHOLESTEROL (ONLY SJRH) 91 mg/dL (5-100); SGOT/AST 18 U/L (15-37)
[2021-03-04 06:45] LABS: TOT PROT 6.1 g/dl (6.4-8.2)
[2021-03-04 06:46] LABS: ALK PHOS 127 U/L (45-117); HDL CHOLESTEROL 27 mg/dL (40-60)
[2021-03-04] MEDS: INSULIN SLIDING SCALE (NOVOLOG) 1 VIAL SQ SCH ×4 (09:20→21:42)
[2021-03-04] MEDS ORDERED: ENOXAPARIN NA (PORCINE) 40 MG/0.4 ML DISP.SYRIN SQ ONE (09:24)
[2021-03-04] MEDS: ENOXAPARIN NA (PORCINE) 40 MG/0.4 ML DISP.SYRIN SQ SCH (09:53)
[2021-03-04] MEDS: ASPIRIN 81 MG CHEWABLE TABLETS PO SCH (09:53)
[2021-03-04] MEDS: INSULIN (LEVEMIR) 100 UNITS/ML UNITS SQ SCH (21:41)
[2021-03-04] MEDS ORDERED: NORTRIPTYLINE HCL 10 MG CAPSULE PO SCH (22:00)
[2021-03-05] MEDS: INSULIN (LEVEMIR) 100 UNITS/ML UNITS SQ SCH (06:26)
[2021-03-05] MEDS: INSULIN SLIDING SCALE (NOVOLOG) 1 VIAL SQ SCH ×3 (06:26→12:33)
[2021-03-05] MEDS ORDERED: INSULIN (LEVEMIR) 100 UNITS/ML UNITS SQ SCH (07:55)
[2021-03-05 08:34] VITALS: TEMP 97.9
[2021-03-05] MEDS: ASPIRIN 81 MG CHEWABLE TABLETS PO SCH (10:05)
[2021-03-05] MEDS: ENOXAPARIN NA (PORCINE) 40 MG/0.4 ML DISP.SYRIN SQ SCH (10:05)
[2021-03-05] MEDS ORDERED: PT OWN MED DRAWER 7, Y5N ONE ×2 (10:50→12:07)
[2021-03-05 13:54] VITALS: BP 146/85; PULSE 73
== END 2021-03-05 14:25 | disposition home or self-care (01) ==
LOC: JER 19:03 → JERBED 03-04 00:45 → OBSVTOIN 03-04 03:05 → INTOOBSV 03-04 03:05 → J4W 03-04 16:54
PROVIDERS: ADMIT Hospitalist; ATTEND Internal Medicine
PROC: 3E023GC Introduction of Other Therapeutic Substance into Muscle, Percutaneous Approach (ICD-10-PCS; principal; 2021-03-04)
DX: I42.1 Obstructive hypertrophic cardiomyopathy (principal); K57.90 Diverticulosis of intestine, part unspecified, without perforation or abscess without bleeding; R79.89 Other specified abnormal findings of blood chemistry; I10 Essential (primary) hypertension; G43.909 Migraine, unspecified, not intractable, without status migrainosus; R00.2 Palpitations; E66.8 Other obesity; Z68.30 Body mass index [BMI] 30.0-30.9, adult
CPT/HCPCS: 36415; 71045-TC-FY; 71275-TC; 80053; 80061; 81003; 82550; 82962; 83036; 83690; 83721; 83735; 83880; 84100; 84484; 85025; 85379; 87086; 93005; 93010; 93306-TC; 96372; 99285-25; C9803; G0378; Q9967; U0003; U0005

== ENCOUNTER 2022-09-16 13:56 | Emergency (ER) | payer OTHER ==
[2022-09-16 15:59] VITALS: BP 147/94; PULSE 94; RESP 18; TEMP 100.4; BMI 31.7
[2022-09-16] MEDS ORDERED: ACETAMINOPHEN 500 MG TABLET (FP) PO ONE (17:07)
[2022-09-16] MEDS ORDERED: ACETAMINOPHEN 500 MG TABLET (FP) ONE (17:09)
[2022-09-16] MEDS ORDERED: IBUPROFEN 600 MG TABLET (FP) PO ONE ×2 (17:15→17:17)
[2022-09-16] MEDS ORDERED: SODIUM CHLORIDE 1,000 ML IV STA (17:26)
== END 2022-09-16 19:11 | disposition home or self-care (01) ==
LOC: JCOVINFU 13:56 → JER 13:56
DX: J09.X2 Influenza due to identified novel influenza A virus with other respiratory manifestations (principal); R51.9 Headache, unspecified; R05.1 Acute cough; R09.81 Nasal congestion
CPT/HCPCS: 0241U-QW; 71046-TC-FY; 93005; 93010; 99285-25

== ENCOUNTER 2023-01-21 04:07 | Day surgery (SDC) | payer OTHER ==
[2023-01-20 15:01] VITALS: BMI 31.7
[2023-01-21 14:04] VITALS: BP 131/89; PULSE 70; RESP 21; TEMP 98
== END 2023-01-21 14:30 | disposition home or self-care (01) ==
LOC: JASU-ENDO 04:07
PROVIDERS: ATTEND Internal Medicine Gastroenterology
PROC: 0DB78ZX Excision of Stomach, Pylorus, Via Natural or Artificial Opening Endoscopic, Diagnostic (ICD-10-PCS; 2023-01-21)
PROC: 0DB68ZX Excision of Stomach, Via Natural or Artificial Opening Endoscopic, Diagnostic (ICD-10-PCS; principal; 2023-01-21 12:15)
DX: K29.50 Unspecified chronic gastritis without bleeding (principal); K31.7 Polyp of stomach and duodenum; K44.9 Diaphragmatic hernia without obstruction or gangrene; I10 Essential (primary) hypertension; E11.9 Type 2 diabetes mellitus without complications; Z79.84 Long term (current) use of oral hypoglycemic drugs
CPT/HCPCS: 82962; 88305-TC; 88342-TC

== ENCOUNTER 2023-02-25 04:05 | Day surgery (SDC) | payer OTHER ==
[2023-02-24 13:55] VITALS: BMI 32.5
[2023-02-25 11:34] VITALS: TEMP 97.7
[2023-02-25 12:00] VITALS: PULSE 67
[2023-02-25 12:17] VITALS: BP 143/76; RESP 17
== END 2023-02-25 12:42 | disposition home or self-care (01) ==
LOC: JASU-ENDO 04:05
PROVIDERS: ATTEND Internal Medicine Gastroenterology
PROC: 0DBN8ZX Excision of Sigmoid Colon, Via Natural or Artificial Opening Endoscopic, Diagnostic (ICD-10-PCS; principal; 2023-02-25 10:15)
DX: Z12.11 Encounter for screening for malignant neoplasm of colon (principal); K63.5 Polyp of colon; K64.8 Other hemorrhoids; K57.30 Diverticulosis of large intestine without perforation or abscess without bleeding; I10 Essential (primary) hypertension; E11.9 Type 2 diabetes mellitus without complications; Z79.84 Long term (current) use of oral hypoglycemic drugs
CPT/HCPCS: 82962; 88305-TC